=== PATIENT | male | born 1945 | race Caucasian/White ===

== ENCOUNTER 2022-07-23 14:37 | Inpatient (IN) ==
[2022-07-23] MEDS ORDERED: CEFEPIME 2,000 MG/20 ML VIAL IV STA (15:04)
[2022-07-23] MEDS: SODIUM CHLORIDE 0.9% 1000ML 1,000 ML IV SCH ×2 (15:33→23:15)
[2022-07-23 15:45] LABS: HCO3 VBG 27 mmol/L; Oxygen Saturation VBG < 60.0 %; PCO2 VBG 40 mmHg (38-50); PO2 VBG 28 mmHg; pH VBG 7.43 (7.36-7.41)
[2022-07-23] MEDS ORDERED: ONDANSETRON INJ 2 MG/ML 2 ML VIAL IV STA (15:55)
[2022-07-23 16:07] LABS: Basophils # (auto) 0.02 K/uL (0-0.2); Basophils % (auto) 0.2 %; Eosinophils # (auto) 0.01 K/uL (0-0.50); Eosinophils % (auto) 0.1 %; Hemoglobin 10.7 g/dl (14.0-18.0); Immature Granulocytes # (auto) 0.02 K/uL (0.01-0.20); Immature Granulocytes % (auto) 0.2 %; Lymphocytes # (auto) 1.16 K/uL (1.2-3.4); Lymphocytes % (auto) 12.3 %; Mean Corpuscular Hgb Conc 32.4 g/dL (32.0-36.0); Mean Corpuscular Volume 89.4 fL (80.0-100.0); Mean Platelet Volume 10.7 fL (9.4-12.4); Monocytes # (auto) 0.93 K/uL (0.11-0.59); Monocytes % (auto) 9.9 %; Neutrophils # (auto) 7.26 K/uL (1.40-6.50); Neutrophils % (auto) 77.3 %; Platelet Count 194 K/uL (130-400); RDW Coefficient of Variation 16.9 % (11.5-14.5); RDW Standard Deviation 54.4 fL (36.4-46.3); Red Blood Count 3.69 M/uL (4.70-6.10)
--- NOTE | 2022-07-23 16:13 | Emergency Department Note ---
Impression & Plan Chronic wound infection of abdomen, Sepsis, Confusion ED Provider Note NAME: JAIME BURCH AGE: 77 SEX: M ARRIVES VIA: Ambulance INFORMANT: Patient ED PROVIDER(S): Sean Tran MD CHIEF COMPLAINT: Altered mental status, fever, hypotension PLAN: Disposition: Admit MEDICAL DECISION MAKING: The patient is a pleasant 77-year-old gentleman with a complicated surgical history of bowel resection and abdominal wall cellulitis and abscess with most recent surgery in February 2022 at [facility], [place], operated by [facility] with subsequent outpatient management for chronically healing wounds with home health who presents to the emergency department via EMS after the patient was found to be confused and weak by home health who arrived to his home for dressing changes. There was initial concern for possible stroke however EMS did note that the patient was febrile to 104 and systolic blood pressure in the 60s. It was reported that the patient was found around 11 AM by workers he had in his home doing yard work and he had slipped out of his chair and they helped him back into the chair but when home health arrived he was again slumped out of the chair. He denies any falls, head strike. He reports he has been feeling some mild shortness of breath over the past week and then this morning felt generalized malaise and simply felt unwell. He feels as though his chronically healing abdominal wounds have continued to improve and per his understanding of his home health evaluations there were no acute concerns related to this. He reports the drainage has been a thin yellow color which has been decreasing in volume progressively. He is not currently on antibiotics. On arrival to the emergency department the patient is fatigued appearing but no acute distress, afebrile upon arrival with heart rate in the 110s and vital signs otherwise stable. He appears intravascularly dry but does have 2+ bilateral lower extremity pitting edema. He has chronically healing distal right lower leg anterior wound with scant surrounding erythema without purulent discharge. His abdominal wall is notable for 3 (1 upper and 2 mid abdominal wall) chronically healing punctate wounds each of which are draining a thick yellow drainage. There is no significant surrounding erythema or warmth. The patient has no tenderness but acknowledges that he does not have much sensation in his abdominal wall due to his numerous abdominal surgeries. EKG without overt acute ischemia. CXR negative for acute cardiopulmonary process. WBC and platelets within normal limits. H/H 10.7/33 without prior values for comparison. INR within normal limits. VBG unremarkable. Chemistry without metabolic acidosis. Lactic acid 1.0, within normal limits. Electrolytes LFTs unremarkable. High-sensitivity troponin 12.9, within normal limits. Lipase within normal limits. Procalcitonin is not elevated. UA is unremarkable. Respiratory viral panel/[employer] was negative. CT of the head was negative for acute abnormalities. CTA of the chest was negative for PE or focal infiltrates. CT of the abdomen pelvis demonstrates filling defect of the right common femoral vein which is suggestive of mixing artifact versus DVT and so right lower extremity ultrasound ordered for further evaluation and is pending. Otherwise CT then pelvis demonstrates postoperative changes of the anterior abdominal wall with note of subcutaneous edema and skin thickening. Note is made of scattered foci of subcutaneous emphysema without drainable fluid collection which correlate to the patient's 3 chronically healing open wounds and so necrotizing infection is considered less likely. Given no drainable collections or evidence that emergent surgery is required reasonable to proceed with admission here for IV antibiotics given the apparent change in the patient's drainage from his wounds and presentation with SIRS and delirium. Patient was treated with empiric IV cefepime and daptomycin. IV fluid hydration was administered with caution given the patient's bilateral lower extremity edema with 2 L normal saline provided in the emergency department which in addition to 500 cc of normal saline prior to arrival by EMS would be 30cc/kg of ideal body weight. [facility] the patient for [facility]. For completeness attempt was made to contact the patient's surgeon Dr. Pierce / surgery team at [facility], [place], operated by [facility]. Admitting team aware. This patient was managed with the assistance of resident, Dr. Huang. I discussed the case with the resident, examined the patient, and confirm the findings and plan as documented in this note. Triage Nursing notes reviewed and agree them. Prior/outside medical records reviewed Vital Signs: reviewed Differential diagnosis: Sepsis, UTI, pneumonia, metabolic, electrolyte abnormalities, cardiac sources, intracerebral event, toxicologic, neurologic, as well as other pathologies. ER treatment provided: See below. Diagnostics interpreted by me: ECG: Normal sinus rhythm, 96 bpm, ST-T wave abnormality, no overt ST elevation or depression, QTc 442, QRS 104. Cardiac Monitoring: An order for continuous cardiac monitoring was placed and demonstrated Normal sinus rhythm, 96 bpm, no ectopy. Laboratory studies: See below Imaging studies: See below Consultation(s): Case was discussed with Dr. Lew, [facility] hospitalist, who will evaluate the patient for admission. HPI: The patient is a pleasant 77-year-old gentleman with a complicated surgical history of bowel resection and abdominal wall cellulitis and abscess with most recent surgery in February 2022 at [facility], [place], operated by [facility] with subsequent out patient management for chronically healing wounds with home health who presents to the emergency department via EMS after the patient was found to be confused and weak by home health who arrived to his home for dressing changes. There was initial concern for possible stroke however EMS did note that the patient was febrile to 104 and systolic blood pressure in the 60s. It was reported that the patient was found around 11 AM by workers he had in his home doing yard work and he had slipped out of his chair and they helped him back into the chair but when home health arrived he was again slumped out of the chair. He denies any falls, head strike. He reports he has been feeling some mild shortness of breath over the past week and then this morning felt generalized malaise and simply felt u nwell. He feels as though his chronically healing abdominal wounds have continued to improve and per his understanding of his home health evaluations there were no acute concerns related to this. He reports the drainage has been a thin yellow color which has been decreasing in volume progressively. He is not currently on antibiotics. ROS: See above HPI for pertinent positives & negatives. A total of 10 systems reviewed and were otherwise negative. VITALS:See Below PHYSICAL EXAMINATION: GENERAL: Awake, alert, well-appearing, in no distress HENT: Normocephalic, atraumatic. Oropharynx unremarkable. EYES: Normal conjunctiva. Sclera non-icteric. NECK: Supple. No nuchal rigidity. FROM. No JVD. RESPIRATORY: Clear to auscultation. CARDIAC: Regular rate, normal rhythm. Extremities warm and well perfused. Pulses equal. ABDOMEN: Soft, non-distended. No tenderness to palpation. No rebound or guarding. Abdominal wall is notable for 3 (1 upper and 2 mid abdominal wall) chronically healing punctate wounds each of which are draining a thick yellow drainage. There is no significant surrounding erythema or warmth. RECTAL: Deferred. MUSCULOSKELETAL: Chest examination reveals no tenderness. The back is symmetrical on inspection without obvious abnormality. There is no CVA tenderness to palpation. No joint edema. LOWER EXTREMITIES: Calves are equal size bilaterally and non-tender. 2+ bilateral lower extremity pitting edema. Chronically healing distal right lower leg anterior wound with scant surrounding erythema without purulent discharge. NEURO: Normal sensorium. No sensory or motor deficits noted. SKIN: No jaundice noted. ED COURSE: Critical Care: I have personally spent greater than 75 minutes of critical care time in the direct management of this patient. This includes bedside care, interpretation of diagnostic studies, and testing, discussion with consultants, patient, and family members, and other required patient management activities. This 75 minutes is in excess of all separately billable procedures. Sean Tran MD Past Med/Surg History Medical History Abdominal wall abscess Abdominal wall cellulitis Arthritis CVA (cerebral vascular accident) Hypertension Mild cognitive impairment ISAAC (obstructive sleep apnea) Surgical History History of hernia repair x 9 Family History Other Heart disease Social History Smoking Status: Never smoker Preferred Language: Greenlandic Feels Safe at Home: Yes Allergies Allergies Allergy/AdvReac Type Severity Reaction Status Date / Time ceftriaxone Allergy Severe Verified 07/23/22 19:34 sulfamethoxazole Allergy Unknown Verified 07/23/22 19:34 [From Bactrim] trimethoprim [From Bactrim] Allergy Unknown Verified 07/23/22 19:34 shellfish Allergy Severe Anaphylaxis Uncoded 07/23/22 19:34 Home Meds Home Medications Medication Instructions Recorded Confirmed ascorbic acid (vitamin C) 250 mg 250 mg PO BID 07/23/22 07/23/22 tablet (Vitamin C) aspirin 81 mg tablet,delayed 81 mg PO DAILY 07/23/22 07/23/22 release atorvastatin 40 mg tablet 40 mg PO HS 07/23/22 07/23/22 cholecalciferol (vitamin D3) 25 25 mcg PO DAILY 07/23/22 07/23/22 mcg (1,000 unit) capsule (Vitamin D3) clopidogrel 75 mg tablet 75 mg PO DAILY 07/23/22 07/23/22 ferrous sulfate 325 mg (65 mg 325 mg PO DAILY 07/23/22 07/23/22 iron) tablet furosemide 20 mg tablet 20 mg PO DAILY 07/23/22 07/23/22 tramadol 50 mg tablet 50 mg PO Q8H PRN Pain 07/23/22 07/23/22 Results & Data (ED) Vital Signs Vital Signs - 24 hr 07/23/22 14:46 07/23/22 14:38 07/23/22 14:45 Temperature 37.4 C Temperature Source Oral Pulse Rate 99 H 103 H 100 H Pulse Rate from SpO2 Sensor Pulse Rhythm Regular Pulse Strength Normal Respiratory Rate 21 18 Respiratory Effort / Characteristics Non-Labored Respiratory Depth Normal Respiratory Pattern Regular Blood Pressure 131/79 Blood Pressure Mean 96 Blood Pressure Position Sitting Pulse Oximetry 97 97 Oxygen Delivery Method Room Air Room Air Sepsis Recent Fever Within 48 Hours Yes Sepsis New/Unexplained Change in Mental Status Yes Sepsis Action Taken by Nursing Physician Notified 07/23/22 14:50 07/23/22 14:50 07/23/22 15:00 Temperature Temperature Source Pulse Rate 93 H Pulse Rate from SpO2 Sensor Pulse Rhythm Pulse Strength Respiratory Rate 17 Respiratory Effort / Characteristics Respiratory Depth Respiratory Pattern Blood Pressure 115/74 112/71 Blood Pressure Mean 87 84 Blood Pressure Position Pulse Oximetry 97 Oxygen Delivery Method Room Air Sepsis Recent Fever Within 48 Hours Sepsis New/Unexplained Change in Mental Status Sepsis Action Taken by Nursing 07/23/22 15:00 07/23/22 15:14 07/23/22 17:04 Temperature 37.4 C Temperature Source Oral Pulse Rate 89 Pulse Rate from SpO2 Sensor Pulse Rhythm Pulse Strength Respiratory Rate 19 16 Respiratory Effort / Characteristics Respiratory Depth Respiratory Pattern Blood Pressure Blood Pressure Mean Blood Pressure Position Pulse Oximetry 96 97 Oxygen Delivery Method Room Air Sepsis Recent Fever Within 48 Hours Sepsis New/Unexplained Change in Mental Status Sepsis Action Taken by Nursing 07/23/22 15:10 07/23/22 15:10 07/23/22 15:15 Temperature Temperature Source Pulse Rate 88 93 H Pulse Rate from SpO2 Sensor 90 91 H Pulse Rhythm Pulse Strength Respiratory Rate 18 14 Respiratory Effort / Characteristics Respiratory Depth Respiratory Pattern Blood Pressure 123/77 Blood Pressure Mean 92 Blood Pressure Position Pulse Oximetry 98 99 Oxygen Delivery Method Sepsis Recent Fever Within 48 Hours Sepsis New/Unexplained Change in Mental Status Sepsis Action Taken by Nursing 07/23/22 15:20 07/23/22 15:20 07/23/22 15:30 Temperature Temperature Source Pulse Rate 93 H Pulse Rate from SpO2 Sensor 94 H Pulse Rhythm Pulse Strength Respiratory Rate 22 Respiratory Effort / Characteristics Respiratory Depth Respiratory Pattern Blood Pressure 107/74 131/68 Blood Pressure Mean 85 89 Blood Pressure Position Pulse Oximetry 96 Oxygen Delivery Method Sepsis Recent Fever Within 48 Hours Sepsis New/Unexplained Change in Mental Status Sepsis Action Taken by Nursing 07/23/22 15:30 07/23/22 15:40 07/23/22 15:40 Temperature Temperature Source Pulse Rate 91 H 113 H Pulse Rate from SpO2 Sensor 86 111 H Pulse Rhythm Pulse Strength Respiratory Rate 19 15 Respiratory Effort / Characteristics Respiratory Depth Respiratory Pattern Blood Pressure 162/97 H Blood Pressure Mean 118 Blood Pressure Position Pulse Oximetry 98 91 Oxygen Delivery Method Sepsis Recent Fever Within 48 Hours Sepsis New/Unexplained Change in Mental Status Sepsis Action Taken by Nursing 07/23/22 15:45 07/23/22 15:51 07/23/22 15:51 Temperature Temperature Source Pulse Rate 105 H 102 H Pulse Rate from SpO2 Sensor 105 H 101 H Pulse Rhythm Pulse Strength Respiratory Rate 24 19 Respiratory Effort / Characteristics Respiratory Depth Respiratory Pattern Blood Pressure 105/89 Blood Pressure Mean 94 Blood Pressure Position Pulse Oximetry 98 97 Oxygen Delivery Method Sepsis Recent Fever Within 48 Hours Sepsis New/Unexplained Change in Mental Status Sepsis Action Taken by Nursing 07/23/22 16:00 07/23/22 16:00 07/23/22 16:11 Temperature Temperature Source Pulse Rate 93 H Pulse Rate from SpO2 Sensor Pulse Rhythm Pulse Strength Respiratory Rate 15 Respiratory Effort / Characteristics Respiratory Depth Respiratory Pattern Blood Pressure 108/80 128/71 Blood Pressure Mean 89 90 Blood Pressure Position Pulse Oximetry Oxygen Delivery Method Sepsis Recent Fever Within 48 Hours Sepsis New/Unexplained Change in Mental Status Sepsis Action Taken by Nursing 07/23/22 16:11 07/23/22 16:15 07/23/22 16:20 Temperature Temperature Source Pulse Rate 93 H 92 H 91 H Pulse Rate from SpO2 Sensor 94 H 91 H 91 H Pulse Rhythm Pulse Strength Respiratory Rate 23 21 22 Respiratory Effort / Characteristics Respiratory Depth Respiratory Pattern Blood Pressure Blood Pressure Mean Blood Pressure Position Pulse Oximetry 97 99 98 Oxygen Delivery Method Sepsis Recent Fever Within 48 Hours Sepsis New/Unexplained Change in Mental Status Sepsis Action Taken by Nursing 07/23/22 16:20 07/23/22 16:30 07/23/22 16:30 Temperature Temperature Source Pulse Rate 93 H Pulse Rate from SpO2 Sensor 93 H Pulse Rhythm Pulse Strength Respiratory Rate 21 Respiratory Effort / Characteristics Respiratory Depth Respiratory Pattern Blood Pressure 114/74 110/62 Blood Pressure Mean 87 78 Blood Pressure Position Pulse Oximetry 96 Oxygen Delivery Method Sepsis Recent Fever Within 48 Hours Sepsis New/Unexplained Change in Mental Status Sepsis Action Taken by Nursing 07/23/22 17:01 07/23/22 17:04 07/23/22 17:04 Temperature Temperature Source Pulse Rate 90 Pulse Rate from SpO2 Sensor 93 H 90 Pulse Rhythm Pulse Strength Respiratory Rate 15 Respiratory Effort / Characteristics Respiratory Depth Respiratory Pattern Blood Pressure 130/81 Blood Pressure Mean 97 Blood Pressure Position Pulse Oximetry 96 90 Oxygen Delivery Method Sepsis Recent Fever Within 48 Hours Sepsis New/Unexplained Change in Mental Status Sepsis Action Taken by Nursing 07/23/22 17:15 07/23/22 17:30 07/23/22 17:30 Temperature Temperature Source Pulse Rate 85 87 Pulse Rate from SpO2 Sensor 84 91 H Pulse Rhythm Pulse Strength Respiratory Rate 19 16 Respiratory Effort / Characteristics Respiratory Depth Respiratory Pattern Blood Pressure 124/84 Blood Pressure Mean 97 Blood Pressure Position Pulse Oximetry 97 98 Oxygen Delivery Method Sepsis Recent Fever Within 48 Hours Sepsis New/Unexplained Change in Mental Status Sepsis Action Taken by Nursing 07/23/22 17:45 07/23/22 18:00 07/23/22 18:01 Temperature Temperature Source Pulse Rate 86 85 Pulse Rate from SpO2 Sensor 85 86 Pulse Rhythm Pulse Strength Respiratory Rate 18 18 Respiratory Effort / Characteristics Respiratory Depth Respiratory Pattern Blood Pressure 140/90 Blood Pressure Mean 106 Blood Pressure Position Pulse Oximetry 97 96 Oxygen Delivery Method Sepsis Recent Fever Within 48 Hours Sepsis New/Unexplained Change in Mental Status Sepsis Action Taken by Nursing 07/23/22 18:01 07/23/22 18:15 07/23/22 18:30 Temperature Temperature Source Pulse Rate 89 84 84 Pulse Rate from SpO2 Sensor 88 85 82 Pulse Rhythm Pulse Strength Respiratory Rate 15 22 17 Respiratory Effort / Characteristics Respiratory Depth Respiratory Pattern Blood Pressure Blood Pressure Mean Blood Pressure Position Pulse Oximetry 97 98 95 Oxygen Delivery Method Sepsis Recent Fever Within 48 Hours Sepsis New/Unexplained Change in Mental Status Sepsis Action Taken by Nursing 07/23/22 18:31 07/23/22 18:31 07/23/22 18:45 Temperature Temperature Source Pulse Rate 84 77 Pulse Rate from SpO2 Sensor 84 74 Pulse Rhythm Pulse Strength Respiratory Rate 17 15 Respiratory Effort / Characteristics Respiratory Depth Respiratory Pattern Blood Pressure 97/80 L Blood Pressure Mean 85 Blood Pressure Position Pulse Oximetry 94 94 Oxygen Delivery Method Sepsis Recent Fever Within 48 Hours Sepsis New/Unexplained Change in Mental Status Sepsis Action Taken by Nursing 07/23/22 19:00 07/23/22 18:55 07/23/22 19:01 Temperature Temperature Source Pulse Rate 74 79 71 Pulse Rate from SpO2 Sensor 70 71 Pulse Rhythm Pulse Strength Respiratory Rate 14 17 Respiratory Effort / Characteristics Respiratory Depth Respiratory Pattern Blood Pressure Blood Pressure Mean Blood Pressure Position Pulse Oximetry 94 94 Oxygen Delivery Method Sepsis Recent Fever Within 48 Hours Sepsis New/Unexplained Change in Mental Status Sepsis Action Taken by Nursing 07/23/22 19:02 07/23/22 19:03 07/23/22 19:04 Temperature Temperature Source Pulse Rate 72 78 79 Pulse Rate from SpO2 Sensor 69 76 78 Pulse Rhythm Pulse Strength Respiratory Rate 20 22 12 Respiratory Effort / Characteristics Respiratory Depth Respiratory Pattern Blood Pressure Blood Pressure Mean Blood Pressure Position Pulse Oximetry 95 95 96 Oxygen Delivery Method Sepsis Recent Fever Within 48 Hours Sepsis New/Unexplained Change in Mental Status Sepsis Action Taken by Nursing 07/23/22 19:05 07/23/22 19:06 07/23/22 19:07 Temperature Temperature Source Pulse Rate 80 79 82 Pulse Rate from SpO2 Sensor 80 80 74 Pulse Rhythm Pulse Strength Respiratory Rate 23 24 16 Respiratory Effort / Characteristics Respiratory Depth Respiratory Pattern Blood Pressure Blood Pressure Mean Blood Pressure Position Pulse Oximetry 95 95 94 Oxygen Delivery Method Sepsis Recent Fever Within 48 Hours Sepsis New/Unexplained Change in Mental Status Sepsis Action Taken by Nursing 07/23/22 19:08 07/23/22 19:09 07/23/22 19:10 Temperature Temperature Source Pulse Rate 80 79 80 Pulse Rate from SpO2 Sensor 78 78 72 Pulse Rhythm Pulse Strength Respiratory Rate 19 21 16 Respiratory Effort / Characteristics Respiratory Depth Respiratory Pattern Blood Pressure Blood Pressure Mean Blood Pressure Position Pulse Oximetry 95 95 96 Oxygen Delivery Method Sepsis Recent Fever Within 48 Hours Sepsis New/Unexplained Change in Mental Status Sepsis Action Taken by Nursing 07/23/22 19:11 07/23/22 19:12 07/23/22 19:13 Temperature Temperature Source Pulse Rate 76 77 77 Pulse Rate from SpO2 Sensor 78 77 77 Pulse Rhythm Pulse Strength Respiratory Rate 17 20 18 Respiratory Effort / Characteristics Respiratory Depth Respiratory Pattern Blood Pressure Blood Pressure Mean Blood Pressure Position Pulse Oximetry 95 94 95 Oxygen Delivery Method Sepsis Recent Fever Within 48 Hours Sepsis New/Unexplained Change in Mental Status Sepsis Action Taken by Nursing 07/23/22 19:14 07/23/22 19:15 07/23/22 19:16 Temperature Temperature Source Pulse Rate 79 80 77 Pulse Rate from SpO2 Sensor 79 79 77 Pulse Rhythm Pulse Strength Respiratory Rate 21 19 17 Respiratory Effort / Characteristics Respiratory Depth Respiratory Pattern Blood Pressure Blood Pressure Mean Blood Pressure Position Pulse Oximetry 95 94 94 Oxygen Delivery Method Sepsis Recent Fever Within 48 Hours Sepsis New/Unexplained Change in Mental Status Sepsis Action Taken by Nursing 07/23/22 19:17 07/23/22 19:18 07/23/22 19:19 Temperature Temperature Source Pulse Rate 82 78 80 Pulse Rate from SpO2 Sensor 78 77 80 Pulse Rhythm Pulse Strength Respiratory Rate 15 19 21 Respiratory Effort / Characteristics Respiratory Depth Respiratory Pattern Blood Pressure Blood Pressure Mean Blood Pressure Position Pulse Oximetry 95 95 94 Oxygen Delivery Method Sepsis Recent Fever Within 48 Hours Sepsis New/Unexplained Change in Mental Status Sepsis Action Taken by Nursing 07/23/22 19:20 07/23/22 19:21 07/23/22 19:22 Temperature Temperature Source Pulse Rate 79 81 79 Pulse Rate from SpO2 Sensor 76 81 78 Pulse Rhythm Pulse Strength Respiratory Rate 23 20 20 Respiratory Effort / Characteristics Respiratory Depth Respiratory Pattern Blood Pressure Blood Pressure Mean Blood Pressure Position Pulse Oximetry 94 95 94 Oxygen Delivery Method Sepsis Recent Fever Within 48 Hours Sepsis New/Unexplained Change in Mental Status Sepsis Action Taken by Nursing 07/23/22 19:23 07/23/22 19:24 07/23/22 19:25 Temperature Temperature Source Pulse Rate 80 77 77 Pulse Rate from SpO2 Sensor 78 77 77 Pulse Rhythm Pulse Strength Respiratory Rate 18 17 16 Respiratory Effort / Characteristics Respiratory Depth Respiratory Pattern Blood Pressure Blood Pressure Mean Blood Pressure Position Pulse Oximetry 96 95 95 Oxygen Delivery Method Sepsis Recent Fever Within 48 Hours Sepsis New/Unexplained Change in Mental Status Sepsis Action Taken by Nursing 07/23/22 19:26 07/23/22 19:27 07/23/22 19:28 Temperature Temperature Source Pulse Rate 81 75 82 Pulse Rate from SpO2 Sensor 76 72 83 Pulse Rhythm Pulse Strength Respiratory Rate 16 17 18 Respiratory Effort / Characteristics Respiratory Depth Respiratory Pattern Blood Pressure Blood Pressure Mean Blood Pressure Position Pulse Oximetry 95 96 94 Oxygen Delivery Method Sepsis Recent Fever Within 48 Hours Sepsis New/Unexplained Change in Mental Status Sepsis Action Taken by Nursing 07/23/22 19:29 07/23/22 19:30 07/23/22 19:31 Temperature Temperature Source Pulse Rate 81 80 Pulse Rate from SpO2 Sensor 80 79 Pulse Rhythm Pulse Strength Respiratory Rate 15 15 Respiratory Effort / Characteristics Respiratory Depth Respiratory Pattern Blood Pressure 143/62 H Blood Pressure Mean 89 Blood Pressure Position Pulse Oximetry 94 95 Oxygen Delivery Method Sepsis Recent Fever Within 48 Hours Sepsis New/Unexplained Change in Mental Status Sepsis Action Taken by Nursing 07/23/22 19:31 07/23/22 19:32 07/23/22 19:33 Temperature Temperature Source Pulse Rate 88 72 83 Pulse Rate from SpO2 Sensor 84 72 80 Pulse Rhythm Pulse Strength Respiratory Rate 16 22 17 Respiratory Effort / Characteristics Respiratory Depth Respiratory Pattern Blood Pressure Blood Pressure Mean Blood Pressure Position Pulse Oximetry 94 95 94 Oxygen Delivery Method Sepsis Recent Fever Within 48 Hours Sepsis New/Unexplained Change in Mental Status Sepsis Action Taken by Nursing 07/23/22 19:34 07/23/22 19:35 07/23/22 19:36 Temperature Temperature Source Pulse Rate 72 78 82 Pulse Rate from SpO2 Sensor 72 72 79 Pulse Rhythm Pulse Strength Respiratory Rate 17 15 23 Respiratory Effort / Characteristics Respiratory Depth Respiratory Pattern Blood Pressure Blood Pressure Mean Blood Pressure Position Pulse Oximetry 95 96 95 Oxygen Delivery Method Sepsis Recent Fever Within 48 Hours Sepsis New/Unexplained Change in Mental Status Sepsis Action Taken by Nursing 07/23/22 19:37 07/23/22 19:38 07/23/22 19:39 Temperature Temperature Source Pulse Rate 78 72 79 Pulse Rate from SpO2 Sensor 75 70 77 Pulse Rhythm Pulse Strength Respiratory Rate 16 16 22 Respiratory Effort / Characteristics Respiratory Depth Respiratory Pattern Blood Pressure Blood Pressure Mean Blood Pressure Position Pulse Oximetry 94 95 95 Oxygen Delivery Method Sepsis Recent Fever Within 48 Hours Sepsis New/Unexplained Change in Mental Status Sepsis Action Taken by Nursing 07/23/22 19:40 07/23/22 19:41 07/23/22 19:42 Temperature Temperature Source Pulse Rate 75 69 76 Pulse Rate from SpO2 Sensor 76 69 77 Pulse Rhythm Pulse Strength Respiratory Rate 20 21 17 Respiratory Effort / Characteristics Respiratory Depth Respiratory Pattern Blood Pressure Blood Pressure Mean Blood Pressure Position Pulse Oximetry 95 95 94 Oxygen Delivery Method Sepsis Recent Fever Within 48 Hours Sepsis New/Unexplained Change in Mental Status Sepsis Action Taken by Nursing 07/23/22 19:43 07/23/22 19:44 07/23/22 19:45 Temperature Temperature Source Pulse Rate 75 82 80 Pulse Rate from SpO2 Sensor 74 78 77 Pulse Rhythm Pulse Strength Respiratory Rate 16 18 21 Respiratory Effort / Characteristics Respiratory Depth Respiratory Pattern Blood Pressure Blood Pressure Mean Blood Pressure Position Pulse Oximetry 97 95 95 Oxygen Delivery Method Sepsis Recent Fever Within 48 Hours Sepsis New/Unexplained Change in Mental Status Sepsis Action Taken by Nursing 07/23/22 19:46 07/23/22 20:11 07/23/22 20:11 Temperature Temperature Source Pulse Rate 80 61 Pulse Rate from SpO2 Sensor 79 61 Pulse Rhythm Pulse Strength Respiratory Rate 16 17 Respiratory Effort / Characteristics Respiratory Depth Respiratory Pattern Blood Pressure 114/69 Blood Pressure Mean 84 Blood Pressure Position Pulse Oximetry 95 95 Oxygen Delivery Method Sepsis Recent Fever Within 48 Hours Sepsis New/Unexplained Change in Mental Status Sepsis Action Taken by Nursing 07/23/22 20:15 07/23/22 20:30 07/23/22 20:30 Temperature Temperature Source Pulse Rate 62 63 Pulse Rate from SpO2 Sensor 62 63 Pulse Rhythm Pulse Strength Respiratory Rate 15 15 Respiratory Effort / Characteristics Respiratory Depth Respiratory Pattern Blood Pressure 99/64 L Blood Pressure Mean 75 Blood Pressure Position Pulse Oximetry 94 94 Oxygen Delivery Method Sepsis Recent Fever Within 48 Hours Sepsis New/Unexplained Change in Mental Status Sepsis Action Taken by Nursing 07/23/22 20:45 Temperature Temperature Source Pulse Rate 66 Pulse Rate from SpO2 Sensor 66 Pulse Rhythm Pulse Strength Respiratory Rate 17 Respiratory Effort / Characteristics Respiratory Depth Respiratory Pattern Blood Pressure Blood Pressure Mean Blood Pressure Position Pulse Oximetry 94 Oxygen Delivery Method Sepsis Recent Fever Within 48 Hours Sepsis New/Unexplained Change in Mental Status Sepsis Action Taken by Nursing Laboratory Data Attestation: I reviewed the patient's lab results. 07/23/22 15:27 07/23/22 15:27 Lab Results 07/23/22 07/23/22 07/23/22 Range/Units 15:27 15:27 15:27 WBC 9.40 (4.8-10.8) K/ul RBC 3.69 L (4.70-6.10) M/uL Hgb 10.7 L (14.0-18.0) g/dl Hct 33.0 L (42.0-52.0) % MCV 89.4 (80.0-100.0) fL MCH 29.0 (25.0-34.0) pg MCHC 32.4 (32.0-36.0) g/dL RDW Std Deviation 54.4 H (36.4-46.3) fL RDW Coeff of Jose 16.9 H (11.5-14.5) % Plt Count 194 (130-400) K/uL MPV 10.7 (9.4-12.4) fL Immature Gran % (Auto) 0.2 % Neut % (Auto) 77.3 % Lymph % (Auto) 12.3 % [place] % (Auto) 9.9 % Eos % (Auto) 0.1 % Baso % (Auto) 0.2 % Neut # (Auto) 7.26 H (1.40-6.50) K/uL Lymph # (Auto) 1.16 L (1.2-3.4) K/uL [place] # (Auto) 0.93 H (0.11-0.59) K/uL Eos # (Auto) 0.01 (0-0.50) K/uL Baso # (Auto) 0.02 (0-0.2) K/uL Immature Gran # (Auto) 0.02 (0.01-0.20) K/uL PT (9.0-12.0) Seconds INR (0.9-1.1) VBG pH (7.36-7.41) VBG pCO2 (38-50) mmHg VBG pO2 mmHg VBG HCO3 mmol/L VBG O2 Saturation % VBG Base Excess mEq/L Sodium 136 (136-145) mmol/L Potassium 4.1 (3.5-5.1) mmol/L Chloride 104 (98-107) mmol/L Carbon Dioxide 28 (21-32) mmol/L Anion Gap 4 (3-11) BUN 18 (6-23) mg/dl Creatinine 1.09 (0.6-1.4) mg/dl Est Cr Clr Drug Dosing 73.7 ml/min Est GFR ( Amer) 76.0 ml/min Est GFR (Non-Af Amer) 65.6 ml/min BUN/Creatinine Ratio 16.5 (10-20) Glucose 116 H (70-99(Fasting)) mg/dl Lactate 1.0 (0.4-2.0) mmol/L Calcium 8.2 L (8.6-10.3) mg/dl Magnesium 1.8 (1.7-2.4) mg/dl Total Bilirubin 0.4 (0.2-1.0) mg/dl Direct Bilirubin 0.1 (0-0.2) mg/dl AST 13 (13-39) U/L ALT 9 (7-52) U/L Alkaline Phosphatase 74 (34-104) U/L Troponin I High Sens 12.9 (0-20) pg/ml Total Protein 6.4 (6.0-8.3) gm/dl Albumin 2.8 L (3.4-5.0) gm/dl Lipase 5 L (11-82) U/L Procalcitonin (0-0.5) ng/ml Urine Color Urine Appearance (Clear) Urine pH (4.5-7.5) Ur Specific [place] (1.000-1.030) Urine Protein (Negative) Urine Glucose (UA) (Negative) Urine Ketones (Negative) Urine Blood (Negative) Urine Nitrite (Negative) Urine Bilirubin (Negative) Urine Urobilinogen (Negative) Ur Leukocyte Esterase (Negative) 07/23/22 07/23/22 07/23/22 Range/Units 15:27 15:27 15:27 WBC (4.8-10.8) K/ul RBC (4.70-6.10) M/uL Hgb (14.0-18.0) g/dl Hct (42.0-52.0) % MCV (80.0-100.0) fL MCH (25.0-34.0) pg MCHC (32.0-36.0) g/dL RDW Std Deviation (36.4-46.3) fL RDW Coeff of Jose (11.5-14.5) % Plt Count (130-400) K/uL MPV (9.4-12.4) fL Immature Gran % (Auto) % Neut % (Auto) % Lymph % (Auto) % [place] % (Auto) % Eos % (Auto) % Baso % (Auto) % Neut # (Auto) (1.40-6.50) K/uL Lymph # (Auto) (1.2-3.4) K/uL [place] # (Auto) (0.11-0.59) K/uL Eos # (Auto) (0-0.50) K/uL Baso # (Auto) (0-0.2) K/uL Immature Gran # (Auto) (0.01-0.20) K/uL PT 11.8 (9.0-12.0) Seconds INR 1.1 (0.9-1.1) VBG pH (7.36-7.41) VBG pCO2 (38-50) mmHg VBG pO2 mmHg VBG HCO3 mmol/L VBG O2 Saturation % VBG Base Excess mEq/L Sodium (136-145) mmol/L Potassium (3.5-5.1) mmol/L Chloride (98-107) mmol/L Carbon Dioxide (21-32) mmol/L Anion Gap (3-11) BUN (6-23) mg/dl Creatinine (0.6-1.4) mg/dl Est Cr Clr Drug Dosing ml/min Est GFR ( Amer) ml/min Est GFR (Non-Af Amer) ml/min BUN/Creatinine Ratio (10-20) Glucose (70-99(Fasting)) mg/dl Lactate (0.4-2.0) mmol/L Calcium (8.6-10.3) mg/dl Magnesium (1.7-2.4) mg/dl Total Bilirubin (0.2-1.0) mg/dl Direct Bilirubin (0-0.2) mg/dl AST (13-39) U/L ALT (7-52) U/L Alkaline Phosphatase (34-104) U/L Troponin I High Sens (0-20) pg/ml Total Protein (6.0-8.3) gm/dl Albumin (3.4-5.0) gm/dl Lipase Cancelled (11-82) U/L Procalcitonin 0.06 (0-0.5) ng/ml Urine Color Urine Appearance (Clear) Urine pH (4.5-7.5) Ur Specific [place] (1.000-1.030) Urine Protein (Negative) Urine Glucose (UA) (Negative) Urine Ketones (Negative) Urine Blood (Negative) Urine Nitrite (Negative) Urine Bilirubin (Negative) Urine Urobilinogen (Negative) Ur Leukocyte Esterase (Negative) 07/23/22 07/23/22 Range/Units 15:27 18:23 WBC (4.8-10.8) K/ul RBC (4.70-6.10) M/uL Hgb (14.0-18.0) g/dl Hct (42.0-52.0) % MCV (80.0-100.0) fL MCH (25.0-34.0) pg MCHC (32.0-36.0) g/dL RDW Std Deviation (36.4-46.3) fL RDW Coeff of Jose (11.5-14.5) % Plt Count (130-400) K/uL MPV (9.4-12.4) fL Immature Gran % (Auto) % Neut % (Auto) % Lymph % (Auto) % [place] % (Auto) % Eos % (Auto) % Baso % (Auto) % Neut # (Auto) (1.40-6.50) K/uL Lymph # (Auto) (1.2-3.4) K/uL [place] # (Auto) (0.11-0.59) K/uL Eos # (Auto) (0-0.50) K/uL Baso # (Auto) (0-0.2) K/uL Immature Gran # (Auto) (0.01-0.20) K/uL PT (9.0-12.0) Seconds INR (0.9-1.1) VBG pH 7.43 H (7.36-7.41) VBG pCO2 40 (38-50) mmHg VBG pO2 28 mmHg VBG HCO3 27 mmol/L VBG O2 Saturation < 60.0 % VBG Base Excess 2.0 mEq/L Sodium (136-145) mmol/L Potassium (3.5-5.1) mmol/L Chloride (98-107) mmol/L Carbon Dioxide (21-32) mmol/L Anion Gap (3-11) BUN (6-23) mg/dl Creatinine (0.6-1.4) mg/dl Est Cr Clr Drug Dosing ml/min Est GFR ( Amer) ml/min Est GFR (Non-Af Amer) ml/min BUN/Creatinine Ratio (10-20) Glucose (70-99(Fasting)) mg/dl Lactate (0.4-2.0) mmol/L Calcium (8.6-10.3) mg/dl Magnesium (1.7-2.4) mg/dl Total Bilirubin (0.2-1.0) mg/dl Direct Bilirubin (0-0.2) mg/dl AST (13-39) U/L ALT (7-52) U/L Alkaline Phosphatase (34-104) U/L Troponin I High Sens (0-20) pg/ml Total Protein (6.0-8.3) gm/dl Albumin (3.4-5.0) gm/dl Lipase (11-82) U/L Procalcitonin (0-0.5) ng/ml Urine Color Yellow Urine Appearance Clear (Clear) Urine pH 6.5 (4.5-7.5) Ur Specific [place] 1.016 (1.000-1.030) Urine Protein Negative (Negative) Urine Glucose (UA) Negative (Negative) Urine Ketones Negative (Negative) Urine Blood Negative (Negative) Urine Nitrite Negative (Negative) Urine Bilirubin Negative (Negative) Urine Urobilinogen Negative (Negative) Ur Leukocyte Esterase Negative (Negative) Administered Medications Discontinued Medications Sodium Chloride (Nss 1000ml) 1,000 mls @ 999 mls/hr IV .Q1H1M SANDOR Stop: 07/23/22 16:45 Last Infusion: 07/23/22 16:35 Dose: 0 mls/hr Documented By: Admin: 07/23/22 15:33 Dose: 999 mls/hr Documented By: Infusion: 07/23/22 15:33 Dose: 999 mls/hr Documented By: Admin: 07/23/22 15:33 Dose: 999 mls/hr Documented By: ALEK Cefepime HCl (Maxipime) 2,000 mg in 20 mls @ 5 mls/min IV NOW STA; Protocol Stop: 07/23/22 15:07 Last Admin: 07/23/22 15:32 Dose: 5 mls/min Documented By: ALEK Daptomycin 550 mg/ Syringe 11 mls @ 5.5 mls/min IV NOW STA; Protocol Stop: 07/23/22 18:18 Last Admin: 07/23/22 18:54 Dose: 5.5 mls/min Documented By: ALEK Ioversol (Optiray 320 500ml) 107 ml IV ONCE ONE Stop: 07/23/22 16:55 Last Admin: 07/23/22 16:55 Dose: 107 ml Documented By: SABINA Ondansetron HCl (Ondansetron Inj 2 Mg/Ml 2 Ml Vial) 4 mg IV NOW STA Stop: 07/23/22 15:56 Last Admin: 07/23/22 15:59 Dose: 4 mg Documented By: ALEK Imaging Data Radiologist's Impression: Chest X-Ray 07/23/22 14:42 XR chest 1V portable CLINICAL HISTORY: Sepsis TECHNIQUE: Single frontal radiograph of the chest was obtained. Comparison: None available at the time of this dictation. FINDINGS: No lines and tubes are seen. Cardiomegaly is noted. The aortic arch is calcified. Prominence and cephalization of the vasculature is seen. No evidence of pleural effusion or pneumothorax. IMPRESSION: Cardiomegaly and mild pulmonary edema. ACT 112: Negative or not required by law. Electronically signed by: Judd Duff M.D. 07/23/2022 4:09 PM Abdomen/Pelvis CT 07/23/22 16:22 CT angio chest PE protocol, CT abd pelvis IV con only CT DOSE: 3524.44 mGy.cm HISTORY: 77 years-old Male with PE. Acute shortness of breath with sepsis TECHNIQUE: Multiple CTA images of the chest were obtained after the intravenous administration of [address] abdomen pelvis with IV contrast also obtained. Coronal and sagittal MIPS were obtained from the axial data set and were submitted for review. All measurements were obtained according to NASCET criteria. A dose lowering technique was utilized adhering to the principles of ALARA. COMPARISON: CT abdomen and pelvis of same day FINDINGS: Limited exam secondary to upper extremity positioning and respiratory motion artifact. CTA: Moderate cardiomegaly without pericardial effusion. Mild fusiform dilation of the ascending thoracic aorta the level the main pulmonary artery, 4 cm. There is patency of the imaged great vessels. The opacified pulmonary arterial tree appears unremarkable. No pulmonary emboli identified. CT CHEST: Unremarkable thyroid. No lymphadenopathy. No pneumothorax, pleural effusion, airspace consolidation or overt pulmonary edema. Mild subsegmental bibasilar atelectasis. Mild bronchial wall thickening. Unremarkable soft tissues. Mid thoracic dextroscoliosis. Degenerative changes of the shoulders and spine. CT ABDOMEN/PELVIS: No pneumatosis or pneumoperitoneum. The spleen, moderately atrophic pancreas and adrenal glands are unremarkable. Cholelithiasis. There are a few scattered probable cysts of the liver measuring up to 10 mm. Patent portal vein. Mild nonspecific bilateral perinephric stranding. Left-sided renal sinus cysts. Bladder wall thickening with partial distention. Atherosclerosis of the aorta with infrarenal ectasia, 2.9 cm. Filling defect noted within the right common femoral vein on image 461. No bowel obstruction or bowel wall thickening. Mild colonic fecal retention. Prior appendectomy. Postoperative changes of prior bowel resection. Postoperative changes of the anterior abdominal wall suggestive of hernia mesh placement. There is subcutaneous edema noted within the right anterior abdominal wall on image 340 series 8 with subcutaneous edema. Mild associated skin thickening. Developmentally spine, pelvis and hips. Lumbar levoscoliosis. IMPRESSION: 1. Cardiomegaly without pulmonary emboli identified. 2. No bowel obstruction or bowel wall thickening. 3. Filling defects within the right common femoral vein suggestive of mixing artifact versus deep venous thrombosis. Correlation with lower extremity Doppler recommended. 4. Postoperative changes of the anterior abdominal wall with subcutaneous edema and skin thickening. Additional scattered foci of subcutaneous emphysema without drainable fluid collection. Correlate clinically to exclude infection. 5. Cholelithiasis. 6. Additional findings as above. ACT 112: Negative or not required by law. The above report was generated using voice recognition software. It may contain grammatical, syntax or spelling errors. Electronically signed by: Jeremy Salas M.D. 07/23/2022 5:44 PM Chest CTA 07/23/22 16:22 CT angio chest PE protocol, CT abd pelvis IV con only CT DOSE: 3524.44 mGy.cm HISTORY: 77 years-old Male with PE. Acute shortness of breath with sepsis TECHNIQUE: Multiple CTA images of the chest were obtained after the intravenous administration of [address] abdomen pelvis with IV contrast also obtained. Coronal and sagittal MIPS were obtained from the axial data set and w ere submitted for review. All measurements were obtained according to NASCET criteria. A dose lowering technique was utilized adhering to the principles of ALARA. COMPARISON: CT abdomen and pelvis of same day FINDINGS: Limited exam secondary to upper extremity positioning and respiratory motion artifact. CTA: Moderate cardiomegaly without pericardial effusion. Mild fusiform dilation of the ascending thoracic aorta the level the main pulmonary artery, 4 cm. There is patency of the imaged great vessels. The opacified pulmonary arterial tree appears unremarkable. No pulmonary emboli identified. CT CHEST: Unremarkable thyroid. No lymphadenopathy. No pneumothorax, pleural effusion, airspace consolidation or overt pulmonary edema. Mild subsegmental bibasilar atelectasis. Mild bronchial wall thickening. Unremarkable soft tissues. Mid thoracic dextroscoliosis. Degenerative changes of the shoulders and spine. CT ABDOMEN/PELVIS: No pneumatosis or pneumoperitoneum. The spleen, moderately atrophic pancreas and adrenal glands are unremarkable. Cholelithiasis. There are a few scattered probable cysts of the liver measuring up to 10 mm. Patent portal vein. Mild nonspecific bilateral perinephric stranding. Left-sided renal sinus cysts. Bladder wall thickening with partial distention. Atherosclerosis of the aorta with infrarenal ectasia, 2.9 cm. Filling defect noted within the right common femoral vein on image 461. No bowel obstruction or bowel wall thickening. Mild colonic fecal retention. Prior appendectomy. Postoperative changes of prior bowel resection. Postoperative changes of the anterior abdominal wall suggestive of hernia mesh placement. There is subcutaneous edema noted within the right anterior abdominal wall on image 340 series 8 with subcutaneous edema. Mild associated skin thickening. Developmentally spine, pelvis and hips. Lumbar levoscoliosis. IMPRESSION: 1. Cardiomegaly without pulmonary emboli identified. 2. No bowel obstruction or bowel wall thickening. 3. Filling defects within the right common femoral vein suggestive of mixing artifact versus deep venous thrombosis. Correlation with lower extremity Doppler recommended. 4. Postoperative changes of the anterior abdominal wall with subcutaneous edema and skin thickening. Additional scattered foci of subcutaneous emphysema without drainable fluid collection. Correlate clinically to exclude infection. 5. Cholelithiasis. 6. Additional findings as above. ACT 112: Negative or not required by law. The above report was generated using voice recognition software. It may contain grammatical, syntax or spelling errors. Electronically signed by: Jeremy Salas M.D. 07/23/2022 5:[address] 07/23/22 16:22 CT SCAN OF THE BRAIN WITHOUT IV CONTRAST CLINICAL HISTORY: Change in mental status COMPARISON STUDY: No priors. TECHNIQUE: Unenhanced axial CT scan of the brain is performed from the vertex to the skull base. A dose lowering technique was utilized adhering to the principles of ALARA. FINDINGS: Brain parenchyma: There is age-related involutional change noting moderate subcortical and periventricular microangiopathic disease. There is no hemorrhage, mass effect, or evidence of acute territorial ischemia by CT criteria. 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 Kennedy-white matter differentiation is preserved. No extra-axial fluid collection is seen. Ventricles, sulci, cisterns: Prominent secondary to involutional change. Intracranial vasculature: There is atherosclerotic calcification of the cavernous carotid and vertebral arteries. Calvarium: Unremarkable. Sinuses and mastoids: There is mild mucosal thickening left maxillary antrum. Trace mucosal thickening seen in the right maxillary sinus. The remaining visualized paranasal sinuses are clear. The mastoid air cells are well pneumatized. Orbits: The bony orbits are grossly intact. IMPRESSION: There is no hemorrhage, mass effect, or evidence of acute ter ritorial ischemia by CT criteria. ACT 112: Negative or not required by law. Electronically signed by: Sav Guzman M.D. 07/23/2022 5:26 PM Venous Doppler Study 07/23/22 18:21 ULTRASOUND RIGHT LOWER EXTREMITY VENOUS CLINICAL HISTORY: Right lower extremity edema. COMPARISON STUDY: No priors. TECHNIQUE: Real-time, grayscale, and color Doppler sonography of the deep veins of the right lower extremity was performed from the inguinal crease to the calf. Compression and augmentation were utilized. FINDINGS: There is no sonographic evidence of deep venous thrombosis identified in the right lower extremity. The common femoral, superficial femoral, and popliteal veins are patent and normally compressible. The greater saphenous vein and the profunda femoris vein at the junction with the common femoral vein are clear. The visualized calf veins are patent. Soft tissue edema is present in the right leg. IMPRESSION: There is no sonographic evidence of deep venous thrombosis identified in the right lower extremity. ACT 112: Negative or not required by law. Electronically signed by: Sav Guzman M.D. 07/23/2022 8:29 PM Discharge Plan Visit Data Chief Complaint: Lethargic Stated Complaint: AMS, STROKE SX ED Provider: Sean Tran ED Midlevel Provider: Camila Huang Discharge Problem: Chronic wound infection of abdomen, Sepsis, Confusion Patient Disposition: Admitted As Inpatient Discharge Instructions Interventions: ED Discharge Assessment Last Done: 07/23/22 21:49 Sepsis Qualifiers: Sepsis type: sepsis due to unspecified organism Sepsis acute organ dysfunction status: without acute organ dysfunction Qualified Code(s): A41.9 - Sepsis, unspecified organism
[2022-07-23 16:20] LABS: Albumin Level 2.8 gm/dl (3.4-5.0); BUN Creatinine Ratio 16.5 (10-20); Bilirubin Direct 0.1 mg/dl (0-0.2); Bilirubin,Total 0.4 mg/dl (0.2-1.0); Calcium 8.2 mg/dl (8.6-10.3); Creatinine Clr Calc Pharmacy 73.7 ml/min; Est GFR (Non-African American) 65.6 ml/min; Magnesium 1.8 mg/dl (1.7-2.4); Potassium 4.1 mmol/L (3.5-5.1); Total Protein 6.4 gm/dl (6.0-8.3)
[2022-07-23 16:25] LABS: INR 1.1 (0.9-1.1); Prothrombin Time 11.8 Seconds (9.0-12.0); Troponin I High Sensitivity 12.9 pg/ml (0-20)
[2022-07-23 16:51] LABS: Adenovirus PCR Not Detected (NotDetected); Bordetella parapertussis PCR Not Detected (NotDetected); Bordetella pertussis PCR Not Detected (NotDetected); Chlamydia pneumoniae PCR Not Detected (NotDetected); Coronavirus 229E PCR Not Detected (NotDetected); Coronavirus CoV-2 (COVID19)PCR Not Detected (NotDetected); Coronavirus HKU1 PCR Not Detected (NotDetected); Coronavirus NL63 PCR Not Detected (NotDetected); Coronavirus OC43PCR Not Detected (NotDetected); Human Metapneumovirus PCR Not Detected (NotDetected); Influenza A PCR Not Detected (NotDetected); Influenza B PCR Not Detected (NotDetected); Mycoplasma pneumoniae PCR Not Detected (NotDetected); Parainfluenza Virus 1 PCR Not Detected (NotDetected); Parainfluenza Virus 2 PCR Not Detected (NotDetected); Parainfluenza Virus 3 PCR Not Detected (NotDetected); Parainfluenza Virus 4 PCR Not Detected (NotDetected); Respiratory Syncytial VirusPCR Not Detected (NotDetected); Rhinovirus/Enterovirus PCR Not Detected (NotDetected)
[2022-07-23] MEDS ORDERED: OPTIRAY 320 500ml IV ONE (16:54)
--- NOTE | 2022-07-23 17:11 | Emergency Department Note ---
ED Visit Note I personally performed a history and examined the patient in conjunction with Dr. Tran. Additional information regarding the history, physical, assessment, and plan were discussed with supervising attending physician and are noted in their ED visit note. . Resident Activity Tracking Resident Involvement: Resident Care Provided Care Provided: Adult ED
--- NOTE | 2022-07-23 17:28 | CT Scan Report ---
CT SCAN OF THE BRAIN WITHOUT IV CONTRAST CLINICAL HISTORY: Change in mental status COMPARISON STUDY: No priors. TECHNIQUE: Unenhanced axial CT scan of the brain is performed from the vertex to the skull base. A do se lowering technique was utilized adhering to the principles of ALARA. FINDINGS: Brain parenchyma: There is age-related involutional change noting moderate subcortical and periventri cular microangiopathic disease. There is no hemorrhage, mass effect, or evidence of acute territorial ischemia by CT criteria. Foci of left parietal and left temporo-occipital encephalomalacia are consi stent with a remote infarct. Kennedy-white matter differentiation is preserved. No extra-axial fluid col lection is seen. Ventricles, sulci, cisterns: Prominent secondary to involutional change. Intracranial vasculature: There is atherosclerotic calcification of the cavernous carotid and vertebr al arteries. Calvarium: Unremarkable. Sinuses and mastoids: There is mild mucosal thickening left maxillary antrum. Trace mucosal thickenin g seen in the right maxillary sinus. The remaining visualized paranasal sinuses are clear. The mastoi d air cells are well pneumatized. Orbits: The bony orbits are grossly intact. IMPRESSION: There is no hemorrhage, mass effect, or evidence of acute territorial ischemia by CT maryuri acevedo. ACT 112: Negative or not required by law. Electronically signed by: Sav Guzman M.D. 07/23/2022 5:26 PM
--- NOTE | 2022-07-23 17:46 | CT Scan Report ---
CT angio chest PE protocol, CT abd pelvis IV con only CT DOSE: 3524.44 mGy.cm HISTORY: 77 years-old Male with PE. Acute shortness of breath with sepsis TECHNIQUE: Multiple CTA images of the chest were obtained after the intravenous administration of [address] abdomen pelvis with IV contrast also obtained. Coronal and sagittal MIPS were obtaine d from the axial data set and were submitted for review. All measurements were obtained according to NASCET criteria. A dose lowering technique was utilized adhering to the principles of ALARA. COMPARISON: CT abdomen and pelvis of same day FINDINGS: Limited exam secondary to upper extremity positioning and respiratory motion artifact. CTA: Moderate cardiomegaly without pericardial effusion. Mild fusiform dilation of the ascending thoracic aorta the level the main pulmonary artery, 4 cm. There is patency of the imaged great vessels. The op acified pulmonary arterial tree appears unremarkable. No pulmonary emboli identified. CT CHEST: Unremarkable thyroid. No lymphadenopathy. No pneumothorax, pleural effusion, airspace consolidation or overt pulmonary edema. Mild subsegmental bibasilar atelectasis. Mild bronchial wall thickening. Unremarkable soft tissues. Mid thoracic dextr oscoliosis. Degenerative changes of the shoulders and spine. CT ABDOMEN/PELVIS: No pneumatosis or pneumoperitoneum. The spleen, moderately atrophic pancreas and adrenal glands are u nremarkable. Cholelithiasis. There are a few scattered probable cysts of the liver measuring up to 10 mm. Patent portal vein. Mild nonspecific bilateral perinephric stranding. Left-sided renal sinus cys ts. Bladder wall thickening with partial distention. Atherosclerosis of the aorta with infrarenal ect cristela, 2.9 cm. Filling defect noted within the right common femoral vein on image 461. No bowel obstruction or bowel wall thickening. Mild colonic fecal retention. Prior appendectomy. Post operative changes of prior bowel resection. Postoperative changes of the anterior abdominal wall sugg estive of hernia mesh placement. There is subcutaneous edema noted within the right anterior abdomina l wall on image 340 series 8 with subcutaneous edema. Mild associated skin thickening. Developmentall y spine, pelvis and hips. Lumbar levoscoliosis. IMPRESSION: 1. Cardiomegaly without pulmonary emboli identified. 2. No bowel obstruction or bowel wall thickening. 3. Filling defects within the right common femoral vein suggestive of mixing artifact versus deep palma ous thrombosis. Correlation with lower extremity Doppler recommended. 4. Postoperative changes of the anterior abdominal wall with subcutaneous edema and skin thickening. Additional scattered foci of subcutaneous emphysema without drainable fluid collection. Correlate cli nically to exclude infection. 5. Cholelithiasis. 6. Additional findings as above. ACT 112: Negative or not required by law. The above report was generated using voice recognition software. It may contain grammatical, syntax o r spelling errors. Electronically signed by: Jeremy Salas M.D. 07/23/2022 5:44 PM
[2022-07-23] MEDS ORDERED: DAPTOmycin 550 MG in SYRINGE 0 ML IV STA (18:17)
[2022-07-23 18:28] LABS: Appearance Urine Clear (Clear); Bilirubin Urine Negative (Negative); Blood Urine Negative (Negative); Color Urine Yellow; Glucose Urine UA Negative (Negative); Ketones Urine Negative (Negative); Leukocyte Esterase Urine Negative (Negative); Nitrite Urine Negative (Negative); Protein Urine Negative (Negative); Specific Gravity Urine 1.016 (1.000-1.030); Urobilinogen Urine Negative (Negative); pH Urine 6.5 (4.5-7.5)
--- NOTE | 2022-07-23 19:00 | History & Physical Report ---
Date of Service July 23, 2022 Assessment & Plan (1) Chronic wound infection of abdomen: Plan: -Received Cefepime and Daptomycin in ER. Patient with history of allergy to Bactrim and ceftriaxone but reportedly can tolerate Cefepime. Unlikely true cephalosporin allergy -Will continue Cefepime and Vancomycin -Follow up wound and blood cultures -Patient will need to follow up with his surgeon after discharge for chronic wound management. CT A/P here negative for abscess -Consult WOCN (2) Abdominal wall cellulitis: (3) Sepsis: Plan: -Present on admission with fever (T 104 ) and tachycardia -Continue antibiotics as above (4) Confusion: Plan: -In setting of sepsis. Likely acute metabolic encephalopathy -Now resolved -Patient with history of mild cognitive impairment, he is at risk for developing delirium while in the hospital -will continue to monitor Plan Possible right femoral DVT -seen on CT A/P -RLE ultrasound pending DVT ppx -SQ lovenox History of Present Illness Primary Care Provider: NO PCP Mr Melchor Cui is a 77 year old man with a complicated abdominal surgical history here today with confusion, found to have a fever (T 104) and low blood pressure (SBP 60s) by EMS. 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 Then this past February 2022 he had remaining mesh removal and partial bowel resection. After this hospitalization, he was at rehab for 1 month and was released before 2021. At the beginning of the year, he slid out of a chair and a section of his abdominal wound dehisced and he was hospitalized at [facility] for 1 week. During this time, there was discussion whether he should have surgery again but because of his multiple abdominal surgeries, it was decided instead for trial of wound care. He was eventually discharged home with a visiting nurse and wound care services. Around May, he noted a new area of dehiscence at the bottom of his wound and since then another 2 area of open drainage on right lower abdominal wall appeared. He last saw his surgeon in April and currently is in the process of transferring his care to [facility]. Recently, his family reports the drainage from his abdominal wounds is thicker and darker than it usually is. Today, he was noted to be lethargic and confused by his visiting nurse and his Temperature was 104. Blood pressure obtained at that time was also low (SBP reportedly in 60s). In the ER, he received IVF, Cefepime and Daptomycin with improvement of his mental status. Family feels his mental status is back to baseline. He also has a history of carotid artery disease for which he takes plavix, history of hypertension was previously on lisinopril but was taken off due to orthostatic hypotension. Allergies Allergy/AdvReac Type Severity Reaction Status Date / Time ceftriaxone Allergy Severe Verified 07/23/22 19:34 sulfamethoxazole Allergy Unknown Verified 07/23/22 19:34 [From Bactrim] trimethoprim [From Bactrim] Allergy Unknown Verified 07/23/22 19:34 shellfish Allergy Severe Anaphylaxis Uncoded 07/23/22 19:34 Home Medications Medication Instructions Recorded Confirmed Type ascorbic acid (vitamin C) 250 mg 250 mg PO BID 07/23/22 07/23/22 History tablet (Vitamin C) aspirin 81 mg tablet,delayed 81 mg PO DAILY 07/23/22 07/23/22 History release atorvastatin 40 mg tablet 40 mg PO HS 07/23/22 07/23/22 History cholecalciferol (vitamin D3) 25 25 mcg PO DAILY 07/23/22 07/23/22 History mcg (1,000 unit) capsule (Vitamin D3) clopidogrel 75 mg tablet 75 mg PO DAILY 07/23/22 07/23/22 History ferrous sulfate 325 mg (65 mg 325 mg PO DAILY 07/23/22 07/23/22 History iron) tablet furosemide 20 mg tablet 20 mg PO DAILY 07/23/22 07/23/22 History tramadol 50 mg tablet 50 mg PO Q8H PRN Pain 07/23/22 07/23/22 History Past Med/Surg History Medical History (Updated 07/23/22 @ 20:46 by Kwesi Lew MD) Abdominal wall abscess Abdominal wall cellulitis Arthritis CVA (cerebral vascular accident) Hypertension Mild cognitive impairment ISAAC (obstructive sleep apnea) Surgical History History of hernia repair x 9 Family History Other Heart disease Social History Smoking Status: Never smoker Preferred Language: Mac[place] Feels Safe at Home: Yes Review of Systems Review of Systems: As above in HPI, remaining ROS otherwise negative Physical Exam Physical Exam: Obese, no acute distress, non toxic ENMT: Mucous membrane moist, normocephalic, atraumatic Neck: Neck thick Respiratory: breathing comfortably on room air, no wheezing/rhonchi/rales Cardiovascular: regular rate and rhythm, no murmurs/rubs/gallops Skin: several small openings on abdominal wall (one is above his umbilicus and one is below, another 2 are on right lower abdominal wall). All are draining thick purulent drainage Neurologic: awake, alert, spontaneously moving extremities, hard of hearing Psychiatric: affect normal, speech linear, non pressured Results & Data Results & Data Vital Signs (Past 12 Hours) Vital Signs Temp Pulse Resp BP Pulse Ox O2 Del Method 07/23/22 17:15 85 19 97 07/23/22 17:04 90 15 90 07/23/22 17:04 130/81 07/23/22 17:01 96 07/23/22 16:30 93 H 21 96 07/23/22 16:30 110/62 07/23/22 16:20 114/74 07/23/22 16:20 91 H 22 98 07/23/22 16:15 92 H 21 99 07/23/22 16:11 93 H 23 97 07/23/22 16:11 128/71 07/23/22 16:00 93 H 15 07/23/22 16:00 108/80 07/23/22 15:51 102 H 19 97 07/23/22 15:51 105/89 07/23/22 15:45 105 H 24 98 07/23/22 15:40 113 H 15 91 07/23/22 15:40 162/97 H 07/23/22 15:30 91 H 19 98 07/23/22 15:30 131/68 07/23/22 15:20 107/74 07/23/22 15:20 93 H 22 96 07/23/22 15:15 93 H 14 99 07/23/22 15:10 123/77 07/23/22 15:10 88 18 98 07/23/22 17:04 37.4 C 07/23/22 15:14 16 97 07/23/22 15:00 89 19 96 Room Air 07/23/22 15:00 112/71 07/23/22 14:50 115/74 07/23/22 14:50 93 H 17 97 Room Air 07/23/22 14:45 100 H 18 97 Room Air 07/23/22 14:38 37.4 C 103 H 21 131/79 97 Room Air 07/23/22 14:46 99 H
--- NOTE | 2022-07-23 20:30 | Ultrasound Report ---
ULTRASOUND RIGHT LOWER EXTREMITY VENOUS CLINICAL HISTORY: Right lower extremity edema. COMPARISON STUDY: No priors. TECHNIQUE: Real-time, grayscale, and color Doppler sonography of the deep veins of the right lower ex tremity was performed from the inguinal crease to the calf. Compression and augmentation were utilize d. FINDINGS: There is no sonographic evidence of deep venous thrombosis identified in the right lower ex tremity. The common femoral, superficial femoral, and popliteal veins are patent and normally dianne sible. The greater saphenous vein and the profunda femoris vein at the junction with the common femor al vein are clear. The visualized calf veins are patent. Soft tissue edema is present in the right le g. IMPRESSION: There is no sonographic evidence of deep venous thrombosis identified in the right lower extremity. ACT 112: Negative or not required by law. Electronically signed by: Sav Guzman M.D. 07/23/2022 8:29 PM
[2022-07-23] MEDS ORDERED: ACETAMINOPHEN 325 MG TAB PO PRN (22:07)
[2022-07-23] MEDS ORDERED: VANCOMYCIN CONSULT ACTIVE PRN ×2 (22:07)
[2022-07-23] MEDS ORDERED: ALUMINUM/MAGNESIUM SUSP 30 ML UDC PO PRN (22:07)
[2022-07-23] MEDS ORDERED: POLYETHYLENE (MIRALAX) 17 GM PACK PO PRN (22:07)
[2022-07-23] MEDS ORDERED: ONDANSETRON INJ 2 MG/ML 2 ML VIAL IV PRN (22:07)
[2022-07-23] MEDS ORDERED: VANCOMYCIN HCL 2,000 MG in SODIUM CHLORIDE 0.9% 500 ML IV STA (22:22)
[2022-07-23] MEDS: MEROPENEM 500 MG in SYRINGE 0 ML IV SCH (23:11)
[2022-07-24] MEDS ORDERED: INFLUENZA VACCINE HIGH DOSE PF 65+ 0.7 ML SYR IM ONE (00:04)
[2022-07-24] MEDS: MEROPENEM 500 MG in SYRINGE 0 ML IV SCH ×4 (04:31→23:50)
[2022-07-24] MEDS: VANCOMYCIN HCL 1,000 MG in SODIUM CHLORIDE 0.9% 250 ML IV SCH ×2 (05:55→17:53)
[2022-07-24] MEDS: ASPIRIN 81 MG ECTAB PO SCH (08:40)
[2022-07-24] MEDS: CLOPIDOGREL BISULFATE 75 MG TAB PO SCH (08:40)
[2022-07-24] MEDS: FERROUS SULFATE 325 MG TAB PO SCH (08:41)
[2022-07-24] MEDS: ENOXAPARIN INJ 40 MG/0.4 ML SYR SQ SCH (08:41)
[2022-07-24] MEDS: FUROSEMIDE 20 MG TAB PO SCH (08:41)
[2022-07-24] MEDS: SODIUM CHLORIDE 0.9% 1000ML 1,000 ML IV SCH (11:13)
[2022-07-24 11:15] LABS: A calco-baum cmplx NotReported Not Detected (NotDetected); Bact fragilis Not Reported Not Detected (NotDetected); C auris Not Reported Not Detected (NotDetected); Calbicans Not Reported Not Detected (NotDetected); Candida glabrata Not Reported Not Detected (NotDetected); Candida krusei Not Reported Not Detected (NotDetected); Cneoformans/gatti Not Reported Not Detected (NotDetected); Cparapsilosis Not Reported Not Detected (NotDetected); Ctropicalis Not Reported Not Detected (NotDetected); E cloacae compx Not Reported Not Detected (NotDetected); Efaecalis Not Reported Not Detected (NotDetected); Efaecium Not Reported Not Detected (NotDetected); Enterobacterales Not Reported Not Detected (NotDetected); Escherichia coli Not Reported Not Detected (NotDetected); H influenzae Not Reported Not Detected (NotDetected); K aerogenes Not Reported Not Detected (NotDetected); Koxytoca Not Reported Not Detected (NotDetected); Kpneumoniae grp Not Reported Not Detected (NotDetected); Lmonocyt Not Reported Not Detected (NotDetected); N meningitidis Not Reported Not Detected (NotDetected); P aeruginosa Not Reported Not Detected (NotDetected); Proteus spp Not Reported Not Detected (NotDetected); Salmonella spp Not Reported Not Detected (NotDetected); Smarcescens Not Reported Not Detected (NotDetected); Staph lugdunensis Not Reported Not Detected (NotDetected); Staph spp. Not Reported DETECTED (NotDetected); Staphaureus Not Reported Not Detected (NotDetected); Staphepi Not Reported DETECTED (NotDetected); Staphylococcus spp. DETECTED (NotDetected); Stenmaltophilia Not Reported Not Detected (NotDetected); Strep agal(GrpB) Not Reported Not Detected (NotDetected); Strep pneum Not Reported Not Detected (NotDetected); Strep pyog (GrpA) Not Reported Not Detected (NotDetected); Strep spp Not Reported Not Detected (NotDetected); mecAC Resistant Gene DETECTED (NotDetected)
[2022-07-24 11:21] LABS: Staphylococcus epidermidis DETECTED (NotDetected)
--- NOTE | 2022-07-24 14:22 | Pharmacy Report ---
Pharmacy PK ABX Note - Date of Service July 24, 2022 - Assessment and Plan Assessment 77 year old M receiving Vancomycin and Meropenem for treatment of abdominal wall cellulitis. * PMHx significant for multiple abdominal wall dehiscence surgeries over the past 5 years. * Admitted for Temp of 104F, confusion and hypotension. * Meropenem added because of an allergy of SOB to ceftriaxone despite patient receiving multiple cefepime doses in the past and tolerating well. Recommended changing Meropenem to Zosyn or Cefepime. Provider would prefer to wait for ID recommendations. * Abdominal wall cultures are growing Group A Strep. 1 set of blood cultures is growing MRSE which is likely a contaminant. Plan Vancomycin * Loading dose: 2000 mg IV x 1 * Maintenance dose: 1000 mg IV every 12 hours * Regimen is predicted to achieve target AUC/CHOCO of 400-600 mg/L.hr * Level will be ordered should therapy extend beyond 48 hours. Pharmacy will continue to follow and will adjust dose/frequency as necessary. Thank you. Pharmacy has transitioned to AUC monitoring for vancomycin. AUC/CHOCO is the preferred PK/PD target and is associated with decreased risk of nephrotoxicity compared to traditional trough targets.
--- NOTE | 2022-07-24 17:02 | Hospitalist Progress Note ---
Date of Service July 24, 2022 Assessment & Plan (1) Confusion: Plan: -Presented with acute confusion, lethargy and also a fever of 104 F as per the visiting nurse -In setting of sepsis. Likely acute metabolic encephalopathy -Patient with history of mild cognitive impairment, he is at risk for developing delirium while in the hospital -Acute confusion seems to be resolved -No more fever observed but weakness persist (2) Chronic wound infection of abdomen: Plan: -Abdominal wound is seems to be worsening with thicker and darker drainage as per the visiting nurse -Received intravenous cefepime and daptomycin in the ER . Patient with history of allergy to Bactrim and ceftriaxone but reportedly can tolerate Cefepime. Unlikely true cephalosporin allergy -Will continue Cefepime and Vancomycin but later on cefepime now changed to meropenem -Blood culture is growing group A beta strep -further identification pending -Patient will need to follow up with his surgeon after discharge for chronic wound management. CT A/P here negative for abscess -Consult WOCN -ID has been consulted (3) Abdominal wall cellulitis: Plan: As above (4) Sepsis: Plan: -Present on admission with fever (T 104 ) and tachycardia -Continue antibiotics as above Plan Possible right femoral DVT -seen on CT A/P -RLE ultrasound pending DVT ppx -SQ lovenox Admission and Anticipated Discharge Date Admission Date: July 23, 2022 Subjective 07/24/2022 The patient was seen and examined in telemetry unit He has been feeling much better and denies any fever and or chills Has been waiting to be seen by the ID doctor No abdominal pain, nausea and or vomiting Review of Systems Review of Systems: All systems reviewed and are unremarkable except as noted below Physical Exam Physical Exam: Sitting on a chair without any acute distress Constitutional: well developed, well nourished, + ill appearing and + obese Eyes: PERRL, conjunctivae normal, anicteric sclerae ENMT: external ear and nose normal, oropharynx normal Neck: trachea midline, no thyromegaly Respiratory: no respiratory distress Auscultation: + diminished lung sounds and + crackles (At the bases) Cardiovascular: Rate/Rhythm: regular rate and regular rhythm; not tachycardic Heart Sounds: normal S1 and normal S2; no murmur Extremities: + edema (1+ edema bilaterally with chronic skin changes and wound on the right) Gastrointestinal (Abdomen): Inspection/Auscultation: + abdomen distended and normal bowel sounds Percussion/Palpation: abdomen soft; abdomen nontender Musculoskeletal: No acute arthritis involving any joint Neurologic: normal touch/pain/proprioception and moves all extremities; no focal motor deficits Psychiatric: A+Ox3, euthymic affect Lymphatic: no cervical or axillary lymphadenopathy Results & Data Results & Data Vital Signs (Past 12 Hours) Vital Signs Temp Pulse Pulse Resp BP Pulse Ox O2 Del Method 07/24/22 15:53 36.7 C 58 L 19 121/79 99 Room Air 07/24/22 15:31 53 L 07/24/22 11:18 36.3 C L 58 L 20 103/62 99 Room Air 07/24/22 10:13 54 L 07/24/22 10:13 Room Air 07/24/22 07:54 36.6 C 58 L 19 99/65 L 99 Room Air Laboratory Results Urine 07/23/22 Range/Units 18:23 Urine Color Yellow Urine Appearance Clear (Clear) Urine pH 6.5 (4.5-7.5) Ur Specific [place] 1.016 (1.000-1.030) Urine Protein Negative (Negative) Urine Glucose (UA) Negative (Negative) Medications Administered Current Inpatient Medications Acetaminophen (Acetaminophen 325 Mg Tab) 650 mg PO Q4H PRN PRN Reason: Pain or Fever Stop: 08/22/22 22:06 Al Hydrox/Mg Hydrox/Simethicone (Aluminum/Magnesium Susp 30 Ml Udc) 15 ml PO Q4H PRN PRN Reason: Dyspepsia Stop: 08/22/22 22:06 Aspirin (Aspirin 81 Mg Ectab) 81 mg PO DAILY [facility] Stop: 08/23/22 08:59 Last Admin: 07/24/22 08:40 Dose: 81 mg Atorvastatin Calcium (Atorvastatin 40 Mg Tab) 40 mg PO HS [facility] Stop: 08/23/22 20:59 Clopidogrel Bisulfate (Clopidogrel Bisulfate 75 Mg Tab) 75 mg PO DAILY [facility] Stop: 08/23/22 08:59 Last Admin: 07/24/22 08:40 Dose: 75 mg Enoxaparin Sodium (Enoxaparin Inj 40 Mg/0.4 Ml Syr) 40 mg SQ QAM [facility] Stop: 08/23/22 08:59 Last Admin: 07/24/22 08:41 Dose: 40 mg Ferrous Sulfate (Ferrous Sulfate 325 Mg Tab) 325 mg PO DAILY [facility] Stop: 08/23/22 08:59 Last Admin: 07/24/22 08:41 Dose: 325 mg Furosemide (Furosemide 20 Mg Tab) 20 mg PO DAILY [facility] Stop: 08/23/22 08:59 Last Admin: 07/24/22 08:41 Dose: 20 mg Meropenem 500 mg/ Syringe 10 mls @ 2 mls/min IV Q6H [facility]; Protocol Stop: 07/30/22 22:59 Last Admin: 07/24/22 16:43 Dose: 2 mls/min Vancomycin HCl 1,000 mg/ (Sodium Chloride) 270 mls @ 200 mls/hr IV Q12H [facility]; Protocol Stop: 07/31/22 05:59 Last Infusion: 07/24/22 07:22 Dose: Infused Miscellaneous Information (Vancomycin Consult Active) 1 each N/A UD PRN PRN Reason: Consult Stop: 08/22/22 22:06 Ondansetron HCl (Ondansetron Inj 2 Mg/Ml 2 Ml Vial) 4 mg IV Q6H PRN PRN Reason: Nausea Stop: 08/22/22 22:06 Polyethylene Glycol (Polyethylene (Miralax) 17 Gm Pack) 17 gm PO DAILY PRN PRN Reason: Constipation Stop: 08/22/22 22:06
[2022-07-24] MEDS: ATORVASTATIN 40 MG TAB PO SCH (20:28)
[2022-07-25] MEDS: MEROPENEM 500 MG in SYRINGE 0 ML IV SCH ×2 (04:03→11:13)
--- NOTE | 2022-07-25 05:58 | Electrocardiogram Report ---
Test Reason : Blood Pressure : / mmHG Vent. Rate : 096 BPM Atrial Rate : 096 BPM P-R Int : 168 ms QRS Dur : 104 ms QT Int : 350 ms P-R-T Axes : 055 043 013 degrees QTc Int : 442 ms Normal sinus rhythm Nonspecific ST and T wave abnormality Abnormal ECG When compared with ECG of 16-MAR-1997 01:27, Vent. rate has increased BY [address] and T wave abnormality is now Present Confirmed by Iron Stoner ([id number]) on 07/25/2022 5:57:28 AM Referred By: REFERRED SELF Confirmed By:Iron Stoner
[2022-07-25] MEDS: VANCOMYCIN HCL 1,000 MG in SODIUM CHLORIDE 0.9% 250 ML IV SCH ×2 (06:35→17:01)
[2022-07-25 06:36] LABS: Basophils # (auto) 0.02 K/uL (0-0.2); Basophils % (auto) 0.3 %; Eosinophils # (auto) 0.37 K/uL (0-0.50); Eosinophils % (auto) 6.3 %; Hematocrit (blood only) 30.8 % (42.0-52.0); Hemoglobin 9.8 g/dl (14.0-18.0); Immature Granulocytes # (auto) 0.02 K/uL (0.01-0.20); Immature Granulocytes % (auto) 0.3 %; Lymphocytes # (auto) 1.26 K/uL (1.2-3.4); Lymphocytes % (auto) 21.4 %; Mean Corpuscular Hgb Conc 31.8 g/dL (32.0-36.0); Mean Corpuscular Volume 91.1 fL (80.0-100.0); Mean Platelet Volume 10.9 fL (9.4-12.4); Monocytes # (auto) 0.43 K/uL (0.11-0.59); Monocytes % (auto) 7.3 %; Neutrophils % (auto) 64.4 %; Platelet Count 170 K/uL (130-400); RDW Coefficient of Variation 16.6 % (11.5-14.5); RDW Standard Deviation 55.5 fL (36.4-46.3); Red Blood Count 3.38 M/uL (4.70-6.10)
[2022-07-25 06:44] LABS: Albumin Globulin Ratio 0.8 (0.9-2); Albumin Level 2.5 gm/dl (3.4-5.0); BUN Creatinine Ratio 22.1 (10-20); Bilirubin,Total 0.3 mg/dl (0.2-1.0); Calcium 7.9 mg/dl (8.6-10.3); Creatinine Clr Calc Pharmacy 74.9 ml/min; Est GFR (African American) 80.5 ml/min; Est GFR (Non-African American) 69.4 ml/min; Globulin 3.3 gm/dl (2.5-4.0); Magnesium 1.9 mg/dl (1.7-2.4); Phosphorus 2.3 mg/dl (2.5-4.9); Potassium 4.2 mmol/L (3.5-5.1); Total Protein 5.8 gm/dl (6.0-8.3)
[2022-07-25] MEDS: CLOPIDOGREL BISULFATE 75 MG TAB PO SCH (08:48)
[2022-07-25] MEDS: FUROSEMIDE 20 MG TAB PO SCH (08:48)
[2022-07-25] MEDS: ENOXAPARIN INJ 40 MG/0.4 ML SYR SQ SCH (08:48)
[2022-07-25] MEDS: FERROUS SULFATE 325 MG TAB PO SCH (08:48)
[2022-07-25] MEDS: ASPIRIN 81 MG ECTAB PO SCH (08:48)
--- NOTE | 2022-07-25 15:39 | Hospitalist Progress Note ---
Date of Service July 25, 2022 Assessment & Plan (1) Confusion: Plan: -Presented with acute confusion, lethargy and also a fever of 104 F as per the visiting nurse -In setting of sepsis. Likely acute metabolic encephalopathy -Patient with history of mild cognitive impairment, he is at risk for developing delirium while in the hospital -Acute confusion seems to be resolved -No more fever observed but weakness persist -No more confusion since admission (2) Chronic wound infection of abdomen: Plan: -Abdominal wound is seems to be worsening with thicker and darker drainage as per the visiting nurse -Received intravenous cefepime and daptomycin in the ER . Patient with history of allergy to Bactrim and ceftriaxone but reportedly can tolerate Cefepime. Unlikely true cephalosporin allergy -Will continue Cefepime and Vancomycin but later on cefepime now changed to meropenem -Blood culture is growing group A beta strep -further identification pending -Patient will need to follow up with his surgeon after discharge for chronic wound management. CT A/P here negative for abscess -Consult WOCN -ID has been consulted -Please see the wound pictures to have a better idea about the wounds on abdomen and also bilateral lower legs -No fever or increasing white count (3) Abdominal wall cellulitis: Plan: Appreciate wound care input and recommendation (4) Sepsis: Plan: -Present on admission with fever (T 104 ) and tachycardia -Continue antibiotics as above Bacteremia -Group A beta strep bacteremia and also another blood culture is growing coagulase-negative staph not lugdunensis -Await ID consult for further recommendation Plan Possible right femoral DVT -seen on CT A/P -RLE ultrasound pending DVT ppx -SQ lovenox Admission and Anticipated Discharge Date Admission Date: July 23, 2022 Subjective 07/24/2022 The patient was seen and examined in telemetry unit He has been feeling much better and denies any fever and or chills Has been waiting to be seen by the ID doctor No abdominal pain, nausea and or vomiting 07/25/2022 The patient was seen and examined in telemetry unit He has been feeling much better and denies any symptoms He feels that his ambulation has improved and the leg weakness has improved too No fever and or chills Review of Systems Review of Systems: All systems reviewed and are unremarkable except as noted below Physical Exam Physical Exam: Sitting on a chair without any acute distress Constitutional: well developed, well nourished, + ill appearing and + obese Eyes: PERRL, conjunctivae normal, anicteric sclerae ENMT: external ear and nose normal, oropharynx normal Neck: trachea midline, no thyromegaly Respiratory: no respiratory distress Auscultation: + diminished lung sounds and + crackles (At the bases) Cardiovascular: Rate/Rhythm: regular rate and regular rhythm; not tachycardic Heart Sounds: normal S1 and normal S2; no murmur Extremities: + edema (1+ edema bilaterally with chronic skin changes and wound on the right) Gastrointestinal (Abdomen): Inspection/Auscultation: + abdomen distended and normal bowel sounds Percussion/Palpation: abdomen soft; abdomen nontender Musculoskeletal: No acute arthritis involving any joint Skin: Has multiple skin wounds involving the abdomen and bilateral lower legs Neurologic: normal touch/pain/proprioception and moves all extremities; no focal motor deficits Psychiatric: A+Ox3, euthymic affect Lymphatic: no cervical or axillary lymphadenopathy Results & Data Results & Data Vital Signs (Past 12 Hours) Vital Signs Temp Pulse Pulse Resp BP Pulse Ox O2 Del Method 07/25/22 11:13 50 L 20 134/82 97 Room Air 07/25/22 08:00 Room Air 07/25/22 07:56 46 L 07/25/22 07:30 36.5 C 50 L 18 146/81 H 97 CPAP 07/25/22 04:07 36.4 C L 56 L 18 123/73 100 CPAP Laboratory Results Short CBC 07/25/22 Range/Units 05:45 WBC 5.90 (4.8-10.8) K/ul Hgb 9.8 L (14.0-18.0) g/dl Hct 30.8 L (42.0-52.0) % Plt Count 170 (130-400) K/uL BMP 07/25/22 05:45 Sodium 139 Potassium 4.2 Chloride 110 H Carbon Dioxide 23 BUN 23 Creatinine 1.04 Glucose 97 Calcium 7.9 L Liver Function 07/25/22 Range/Units 05:45 Total Bilirubin 0.3 (0.2-1.0) mg/dl AST 10 L (13-39) U/L ALT 8 (7-52) U/L Alkaline Phosphatase 66 (34-104) U/L Albumin 2.5 L (3.4-5.0) gm/dl Medications Administered Current Inpatient Medications Acetaminophen (Acetaminophen 325 Mg Tab) 650 mg PO Q4H PRN PRN Reason: Pain or Fever Stop: 08/22/22 22:06 Al Hydrox/Mg Hydrox/Simethicone (Aluminum/Magnesium Susp 30 Ml Udc) 15 ml PO Q4H PRN PRN Reason: Dyspepsia Stop: 08/22/22 22:06 Aspirin (Aspirin 81 Mg Ectab) 81 mg PO DAILY [facility] Stop: 08/23/22 08:59 Last Admin: 07/25/22 08:48 Dose: 81 mg Atorvastatin Calcium (Atorvastatin 40 Mg Tab) 40 mg PO HS [facility] Stop: 08/23/22 20:59 Last Admin: 07/24/22 20:28 Dose: 40 mg Clopidogrel Bisulfate (Clopidogrel Bisulfate 75 Mg Tab) 75 mg PO DAILY [facility] Stop: 08/23/22 08:59 Last Admin: 07/25/22 08:48 Dose: 75 mg Enoxaparin Sodium (Enoxaparin Inj 40 Mg/0.4 Ml Syr) 40 mg SQ QAM [facility] Stop: 08/23/22 08:59 Last Admin: 07/25/22 08:48 Dose: 40 mg Ferrous Sulfate (Ferrous Sulfate 325 Mg Tab) 325 mg PO DAILY [facility] Stop: 08/23/22 08:59 Last Admin: 07/25/22 08:48 Dose: 325 mg Furosemide (Furosemide 20 Mg Tab) 20 mg PO DAILY [facility] Stop: 08/23/22 08:59 Last Admin: 07/25/22 08:48 Dose: 20 mg Vancomycin HCl 1,000 mg/ (Sodium Chloride) 270 mls @ 200 mls/hr IV Q12H [facility]; Protocol Stop: 07/31/22 05:59 Last Infusion: 07/25/22 07:57 Dose: Infused Cefazolin Sodium (Ancef 2000mg) 2,000 mg in 15 mls @ 3.75 mls/min IV Q8H [facility]; Protocol Stop: 07/30/22 16:59 Miscellaneous Information (Vancomycin Consult Active) 1 each N/A UD PRN PRN Reason: Consult Stop: 08/22/22 22:06 Ondansetron HCl (Ondansetron Inj 2 Mg/Ml 2 Ml Vial) 4 mg IV Q6H PRN PRN Reason: Nausea Stop: 08/22/22 22:06 Polyethylene Glycol (Polyethylene (Miralax) 17 Gm Pack) 17 gm PO DAILY PRN PRN Reason: Constipation Stop: 08/22/22 22:06 Last Admin: 07/24/22 18:14 Dose: 17 gm
[2022-07-25] MEDS: ceFAZolin 2000MG 2,000 MG/15 ML SYR IV SCH (17:01)
[2022-07-25] MEDS: ATORVASTATIN 40 MG TAB PO SCH (20:10)
[2022-07-26] MEDS: ceFAZolin 2000MG 2,000 MG/15 ML SYR IV SCH ×2 (00:32→08:34)
[2022-07-26] MEDS ORDERED: VANCOMYCIN LEVEL ONE (05:30)
[2022-07-26] MEDS: VANCOMYCIN HCL 1,000 MG in SODIUM CHLORIDE 0.9% 250 ML IV SCH (05:57)
[2022-07-26 06:54] LABS: Creatinine Clr Calc Pharmacy 78.8 ml/min; Est GFR (African American) 85.4 ml/min; Est GFR (Non-African American) 73.7 ml/min
[2022-07-26] MEDS: ASPIRIN 81 MG ECTAB PO SCH (08:30)
[2022-07-26] MEDS: CLOPIDOGREL BISULFATE 75 MG TAB PO SCH (08:30)
[2022-07-26] MEDS: FERROUS SULFATE 325 MG TAB PO SCH (08:30)
[2022-07-26] MEDS: FUROSEMIDE 20 MG TAB PO SCH (08:30)
[2022-07-26] MEDS: ENOXAPARIN INJ 40 MG/0.4 ML SYR SQ SCH (08:30)
--- NOTE | 2022-07-26 13:24 | Hospitalist Progress Note ---
Date of Service July 26, 2022 Assessment & Plan (1) Confusion: Plan: -Presented with acute confusion, lethargy and also a fever of 104 F as per the visiting nurse -In setting of sepsis. Likely acute metabolic encephalopathy -Patient with history of mild cognitive impairment, he is at risk for developing delirium while in the hospital -Acute confusion seems to be resolved -No more fever observed but weakness persist -No more confusion since admission -Completely resolved -wants to go home and does not want to stay till Thursday (2) Chronic wound infection of abdomen: Plan: -Abdominal wound is seems to be worsening with thicker and darker drainage as per the visiting nurse -Received intravenous cefepime and daptomycin in the ER . Patient with history of allergy to Bactrim and ceftriaxone but reportedly can tolerate Cefepime. Unlikely true cephalosporin allergy -Will continue Cefepime and Vancomycin but later on cefepime now changed to meropenem -Blood culture is growing group A beta strep -further identification pending -Patient will need to follow up with his surgeon after discharge for chronic wound management. CT A/P here negative for abscess -Consult WOCN -ID has been consulted -Please see the wound pictures to have a better idea about the wounds on abdomen and also bilateral lower legs -No fever or increasing white count -His antibiotic will be changed to oral Keflex and will be discharged home this afternoon -Strongly advised to keep the wound clean and dry and dressing as per recommendation (3) Abdominal wall cellulitis: Plan: Appreciate wound care input and recommendation Denies any pain and/or redness or drainage (4) Sepsis: Plan: -Present on admission with fever (T 104 ) and tachycardia -Continue antibiotics as above Bacteremia -Group A beta strep bacteremia and also another blood culture is growing coagulase-negative staph not lugdunensis -1 out of 2 bottles grew coagulase-negative staph-discussed with the pharmacist and without any evidence of further signs of infection it is thought to be due to contaminant -Repeat blood cultures will be taken today -Patient is started with oral Keflex to continue the course of antibiotic Plan Possible right femoral DVT -seen on CT A/P -RLE ultrasound pending-no DVT DVT ppx -SQ lovenox Discussed with the son and the patient Will be discharged home this afternoon Blood cultures were taken His condition gets worse and the blood culture is otherwise he will be coming back to the hospital Admission and Anticipated Discharge Date Admission Date: July 23, 2022 Subjective 07/24/2022 The patient was seen and examined in telemetry unit He has been feeling much better and denies any fever and or chills Has been waiting to be seen by the ID doctor No abdominal pain, nausea and or vomiting 07/25/2022 The patient was seen and examined in telemetry unit He has been feeling much better and denies any symptoms He feels that his ambulation has improved and the leg weakness has improved too No fever and or chills 07/26/2022 The patient was seen and examined in telemetry unit He has been stable and denies any significant symptoms He does not have any current confusion and definitely wants to go home Refusing to stay till Thursday to get ID consult Review of Systems Review of Systems: All systems reviewed and are unremarkable except as noted below Physical Exam Physical Exam: Sitting on a chair without any acute distress Constitutional: well developed, well nourished, + ill appearing and + obese Eyes: PERRL, conjunctivae normal, anicteric sclerae ENMT: external ear and nose normal, oropharynx normal Neck: trachea midline, no thyromegaly Respiratory: no respiratory distress Auscultation: + diminished lung sounds and + crackles (At the bases) Cardiovascular: Rate/Rhythm: regular rate and regular rhythm; not tachycardic Heart Sounds: normal S1 and normal S2; no murmur Extremities: + edema (1+ edema bilaterally with chronic skin changes and wound on the right) Gastrointestinal (Abdomen): Inspection/Auscultation: + abdomen distended and normal bowel sounds Percussion/Palpation: abdomen soft; abdomen nontender Neurologic: normal touch/pain/proprioception and moves all extremities; no focal motor deficits Psychiatric: A+Ox3, euthymic affect Lymphatic: no cervical or axillary lymphadenopathy Results & Data Results & Data Vital Signs (Past 12 Hours) Vital Signs Temp Pulse Pulse Resp BP Pulse Ox O2 Del Method 07/26/22 11:38 36.4 C L 75 18 123/79 100 Room Air 07/26/22 08:00 51 L 07/26/22 08:01 36.5 C 62 19 137/81 99 BiPAP 07/26/22 03:34 36.5 C 54 L 18 109/68 96 BiPAP Laboratory Results [facility] 07/26/22 05:49 Creatinine 0.99 Medications Administered Current Inpatient Medications Acetaminophen (Acetaminophen 325 Mg Tab) 650 mg PO Q4H PRN PRN Reason: Pain or Fever Stop: 08/22/22 22:06 Al Hydrox/Mg Hydrox/Simethicone (Aluminum/Magnesium Susp 30 Ml Udc) 15 ml PO Q4H PRN PRN Reason: Dyspepsia Stop: 08/22/22 22:06 Aspirin (Aspirin 81 Mg Ectab) 81 mg PO DAILY [facility] Stop: 08/23/22 08:59 Last Admin: 07/26/22 08:30 Dose: 81 mg Atorvastatin Calcium (Atorvastatin 40 Mg Tab) 40 mg PO HS [facility] Stop: 08/23/22 20:59 Last Admin: 07/25/22 20:10 Dose: 40 mg Cephalexin HCl (Cephalexin 500 Mg Cap) 500 mg PO TID [facility] Stop: 08/02/22 13:59 Clopidogrel Bisulfate (Clopidogrel Bisulfate 75 Mg Tab) 75 mg PO DAILY [facility] Stop: 08/23/22 08:59 Last Admin: 07/26/22 08:30 Dose: 75 mg Enoxaparin Sodium (Enoxaparin Inj 40 Mg/0.4 Ml Syr) 40 mg SQ QAM [facility] Stop: 08/23/22 08:59 Last Admin: 07/26/22 08:30 Dose: 40 mg Ferrous Sulfate (Ferrous Sulfate 325 Mg Tab) 325 mg PO DAILY [facility] Stop: 08/23/22 08:59 Last Admin: 07/26/22 08:30 Dose: 325 mg Furosemide (Furosemide 20 Mg Tab) 20 mg PO DAILY [facility] Stop: 08/23/22 08:59 Last Admin: 07/26/22 08:30 Dose: 20 mg Ondansetron HCl (Ondansetron Inj 2 Mg/Ml 2 Ml Vial) 4 mg IV Q6H PRN PRN Reason: Nausea Stop: 08/22/22 22:06 Polyethylene Glycol (Polyethylene (Miralax) 17 Gm Pack) 17 gm PO DAILY PRN PRN Reason: Constipation Stop: 08/22/22 22:06 Last Admin: 07/24/22 18:14 Dose: 17 gm
[2022-07-26] MEDS ORDERED: cephALEXin 500 MG CAP PO SCH (14:00)
--- NOTE | 2022-07-27 07:42 | Discharge Summary ---
Date of Service July 26, 2022 Admission HPI Per Admitting Provider Mr Melchor Cui is a 77 year old man with a complicated abdominal surgical history here today with confusion, found to have a fever (T 104) and low blood pressure (SBP 60s) by EMS. With regards to his abdominal surgeries: Per family, in 2017 he underwent emergent surgery for abdominal wall dehiscence, at [facility], he underwent mesh removal and abdominal wall closure. Then this past February 2022 he had remaining mesh removal and partial bowel resection. After this hospitalization, he was at rehab for 1 month and was released before 2021. At the beginning of the year, he slid out of a chair and a section of his abdominal wound dehisced and he was hospitalized at [facility] for 1 week. During this time, there was discussion whether he should have surgery again but because of his multiple abdominal surgeries, it was decided instead for trial of wound care. He was eventually discharged home with a visiting nurse and wound care services. Around May, he noted a new area of dehiscence at the bottom of his wound and since then another 2 area of open drainage on right lower abdominal wall appeared. He last saw his surgeon in April and currently is in the process of transferring his care to [facility]. Recently, his family reports the drainage from his abdominal wounds is thicker and darker than it usually is. Today, he was noted to be lethargic and confused by his visiting nurse and his Temperature was 104. Blood pressure obtained at that time was also low (SBP reportedly in 60s). In the ER, he received IVF, Cefepime and Daptomycin with improvement of his mental status. Family feels his mental status is back to baseline. He also has a history of carotid artery disease for which he takes plavix, history of hypertension was previously on lisinopril but was taken off due to orthostatic hypotension. Admission Exam Per Admitting Provider Physical Exam: Obese, no acute distress, non toxic ENMT: Mucous membrane moist, normocephalic, atraumatic Neck: Neck thick Respiratory: breathing comfortably on room air, no wheezing/rhonchi/rales Cardiovascular: regular rate and rhythm, no murmurs/rubs/gallops Skin: several small openings on abdominal wall (one is above his umbilicus and one is below, another 2 are on right lower abdominal wall). All are draining thick p urulent drainage Neurologic: awake, alert, spontaneously moving extremities, hard of hearing Psychiatric: affect normal, speech linear, non pressured Principal Diagnosis Chronic wound infection of the abdomen, bilateral leg wounds, acute confusion- resolved Discharge Exam Sitting on a chair without any acute distress Constitutional well developed, well nourished, + ill appearing and + obese Eyes PERRL, conjunctivae normal, anicteric sclerae ENMT external ear and nose normal, oropharynx normal Neck trachea midline, no thyromegaly Respiratory no respiratory distress Auscultation: + diminished lung sounds and + crackles (At the bases) Cardiovascular Rate/Rhythm: regular rate and regular rhythm; not tachycardic Heart Sounds: normal S1 and normal S2; no murmur Extremities: + edema (1+ edema bilaterally with chronic skin changes and wound on the right) Gastrointestinal (Abdomen) Inspection/Auscultation: + abdomen distended and normal bowel sounds Percussion/Palpation: abdomen soft; abdomen nontender Neurologic normal touch/pain/proprioception and moves all extremities; no focal motor deficits Psychiatric A+Ox3, euthymic affect Lymphatic no cervical or axillary lymphadenopathy Discharge Data Allergies Allergy/AdvReac Type Severity Reaction Status Date / Time ceftriaxone Allergy Severe Unknown Verified 07/24/22 00:11 shellfish derived Allergy Severe Anaphylaxis Verified 07/24/22 00:11 sulfamethoxazole Allergy Unknown Unknown Verified 07/24/22 00:11 [From Bactrim] trimethoprim [From Bactrim] Allergy Unknown Unknown Verified 07/24/22 00:11 Consultations 07/23/22 18:56 ED Decision to Admit Stat Ordered Studies 07/23/22 16:22 CT abd pelvis IV con only Stat CT angio chest PE protocol Stat CT head/brain wo con Stat 07/23/22 18:21 US venous doppler LE RT Stat Hospital Course (1) Confusion: -Presented with acute confusion, lethargy and also a fever of 104 F as per the visiting nurse -In setting of sepsis. Likely acute metabolic encephalopathy -Patient with history of mild cognitive impairment, he is at risk for developing delirium while in the hospital -Acute confusion seems to be resolved -No more fever observed but weakness persist -No more confusion since admission -Completely resolved -wants to go home and does not want to stay till Thursday (2) Chronic wound infection of abdomen: -Abdominal wound is seems to be worsening with thicker and darker drainage as per the visiting nurse -Received intravenous cefepime and daptomycin in the ER . Patient with history of allergy to Bactrim and ceftriaxone but reportedly can tolerate Cefepime. Unlikely true cephalosporin allergy -Will continue Cefepime and Vancomycin but later on cefepime now changed to meropenem -Blood culture is growing group A beta strep -further identification pending -Patient will need to follow up with his surgeon after discharge for chronic wound management. CT A/P here negative for abscess -Consult WOCN -ID has been consulted -Please see the wound pictures to have a better idea about the wounds on abdomen and also bilateral lower legs -No fever or increasing white count -His antibiotic will be changed to oral Keflex and will be discharged home this afternoon -Strongly advised to keep the wound clean and dry and dressing as per recommendation (3) Abdominal wall cellulitis: Appreciate wound care input and recommendation Denies any pain and/or redness or drainage (4) Sepsis: -Present on admission with fever (T 104 ) and tachycardia -Continue antibiotics as above Bacteremia -Group A beta strep bacteremia and also another blood culture is growing coagulase-negative staph not lugdunensis -1 out of 2 bottles grew coagulase-negative staph-discussed with the pharmacist and without any evidence of further signs of infection it is thought to be due to contaminant -Repeat blood cultures will be taken today -Patient is started with oral Keflex to continue the course of antibiotic Plan Possible right femoral DVT -seen on CT A/P -RLE ultrasound pending-no DVT DVT ppx -SQ lovenox Discussed with the son and the patient Will be discharged home this afternoon Blood cultures were taken His condition gets worse and the blood culture is otherwise he will be coming back to the hospital Total Time Total Time Spent Total Time Spent (In Minutes): 35 minutes Discharge Plan Discharge Items Patient Disposition: Home - Home Health Services Reason For Visit: ABDOMINAL WALL INFECTION Discharge Diagnosis: Chronic wound infection of the abdomen, bilateral leg wounds, acute confusion- resolved Condition on Discharge: Fair Activity: Resume your previous activity Non-emergency contact: Primary Care Provider Call non-emergency contact if: you have any medication questions and your symptoms worsen Follow-up/Referrals: PCP,NO [Primary Care Provider] - (Please make an appointment with your PCP within 1 week. Keep appointment with your surgeon) Diet: Heart Healthy Addtl Attending Provider Instructions: Please take precaution to avoid falls Finish the course of antibiotic Keep your wounds clean and dry and keep dressing as per instruction from the wound care Please keep appointment with your healthcare providers Pending Studies at Discharge: Yes Studies:: Blood cultures report Stand-Alone Forms: My [facility], Smoking Cessation Medications and DC Order Prescriptions: New cephalexin 500 mg Capsule 500 mg PO TID 7 Days Qty: 21 0RF Continued atorvastatin 40 mg tablet 40 mg PO HS clopidogrel 75 mg tablet 75 mg PO DAILY aspirin 81 mg Tablet,Delayed Release (Dr/Ec) 81 mg PO DAILY tramadol 50 mg Tablet 50 mg PO Q8H PRN (Reason: Pain) ascorbic acid (vitamin C) [Vitamin C] 250 mg Tablet 250 mg PO BID furosemide 20 mg tablet 20 mg PO DAILY cholecalciferol (vitamin D3) [Vitamin D3] 25 mcg (1,000 unit) Capsule 25 mcg PO DAILY ferrous sulfate 325 mg (65 mg iron) Tablet 325 mg PO DAILY Discharge Orders: Discharge Order (Routine); Ordered 07/26/22 Ordered By: Eloisa Lizama Admission Data Admit Date/Time: 07/23/22 20:54 Attending Provider: Eloisa Lizama Admit Provider: Kwesi Lew Primary Care Provider: PCP,NO Other Providers: Kwesi Lew Other Interventions: Discharge Summary Assessment (RN) Last Done: 07/26/22 14:30
== END 2022-07-26 16:28 | disposition home health service (06) | DRG 871 ==
LOC: ED 14:37 → 4W 20:54 → SUATTDRO 20:54 → 4W 21:49
DX: G93.41 Metabolic encephalopathy; A40.0 Sepsis due to streptococcus, group A; Z88.1 Allergy status to other antibiotic agents; I10 Essential (primary) hypertension; S31.109A Unspecified open wound of abdominal wall, unspecified quadrant without penetration into peritoneal cavity, initial encounter; Z88.2 Allergy status to sulfonamides; L03.311 Cellulitis of abdominal wall